=== PATIENT | female | born 1985 | race Caucasian/White ===

== ENCOUNTER 2024-09-13 10:49 | Outpatient (CLI) | payer BC, SELFPAY | END 2024-09-13 10:50 | disposition home or self-care (01) | LOC: NFLDREF 10:50 | PROVIDERS: Visit Provider Advanced Practice Midwife | DX: Z34.92 Encounter for supervision of normal pregnancy, unspecified, second trimester (principal); Z3A.23 23 weeks gestation of pregnancy | CPT/HCPCS: 86140 ==

== ENCOUNTER 2024-10-11 11:09 | Outpatient (CLI) | payer BC, SELFPAY | END 2024-10-11 11:10 | disposition home or self-care (01) | PROVIDERS: Visit Provider Advanced Practice Midwife | DX: Z34.83 Encounter for supervision of other normal pregnancy, third trimester (principal); Z67.11 Type A blood, Rh negative | CPT/HCPCS: 86592; 86850; J2791 ==

== ENCOUNTER 2024-10-18 08:28 | Outpatient (CLI) | payer BC, SELFPAY | END 2024-10-18 08:29 | disposition home or self-care (01) | LOC: NFLDREF 11:12 | PROVIDERS: Visit Provider Advanced Practice Midwife | DX: O99.810 Abnormal glucose complicating pregnancy (principal); Z3A.29 29 weeks gestation of pregnancy | CPT/HCPCS: 82951; 82952 ==

== ENCOUNTER 2024-11-24 13:39 | Outpatient (CLI) | payer BC, SELFPAY | END 2024-11-24 13:40 | disposition home or self-care (01) | LOC: FRMREF 13:40 | PROVIDERS: Visit Provider Midwife | DX: O99.013 Anemia complicating pregnancy, third trimester (principal); N39.0 Urinary tract infection, site not specified; Z3A.34 34 weeks gestation of pregnancy | CPT/HCPCS: 82728; 87086 ==

== ENCOUNTER 2024-12-08 13:59 | Outpatient (CLI) | payer BC, SELFPAY | END 2024-12-08 14:00 | disposition home or self-care (01) | LOC: NFLDREF 12-11 01:52 | PROVIDERS: Visit Provider Advanced Practice Midwife | DX: Z34.83 Encounter for supervision of other normal pregnancy, third trimester (principal) | CPT/HCPCS: 87081; 87653 ==

== ENCOUNTER 2024-12-09 10:17 | Outpatient (RCR) | payer BC, SELFPAY ==
--- NOTE | 2024-12-02 12:46 | URNOTE ---
Per [employer], [employer]([id number]) has been approved 11/26/2024-05/24/2025. Auth #[id number]
[2024-12-09 10:45] VITALS: BP 118/75; PULSE 101; RESP 16; TEMP 36.4; O2SAT 96
[2024-12-09] MEDS: IRON DEXTRAN COMPLEX 25 MG in 0.9 % SODIUM CHLORIDE 100 ml 100 ML 402 MG IVPB (11:06)
[2024-12-09 11:25] VITALS: BP 114/74; PULSE 92; RESP 16; O2SAT 96
[2024-12-09] MEDS: IRON DEXTRAN COMPLEX 975 MG in 0.9 % SODIUM CHLORIDE 250 ml 250 ML 269.5 MG IVPB (12:16)
[2024-12-09 13:23] VITALS: BP 115/74; PULSE 84; RESP 16; O2SAT 98
== END 2025-06-07 23:59 | disposition home or self-care (01) ==
LOC: CCIC 10:17
PROVIDERS: PCP Family Medicine; Visit Provider Clinical Nurse Specialist
DX: O99.013 Anemia complicating pregnancy, third trimester (principal); D50.9 Iron deficiency anemia, unspecified
CPT/HCPCS: 96365; J1750; J7050

== ENCOUNTER 2025-01-07 20:08 | Outpatient (CLI) | payer BC, SELFPAY ==
[2025-01-07 20:21] VITALS: BP 130/85; PULSE 104; RESP 16; TEMP 36.7
--- NOTE | 2025-01-07 21:09 | PC.OBNST ---
NST Note NST Note Start: 01/07/25 20:11 Freq: ONCE Status: Active Protocol: Document 01/07/25 21:08 HECTOR (Rec: 01/07/25 21:09 HECTOR [id number]) NST Note 2 Para (# of births) 1 EDC 01/03/25 Gestational Age In Weeks & Days 40 Weeks & 4 Days High Risk Factors Advanced Maternal Age Patient Presented with Complaint(s) of Decreased movement Reactive Yes RN Zena Rucker RN Date 01/07/25 Reactive Yes BISI Pablo RN Date 01/07/25 OB NST charge Yes Complete NST Note via Write Note Yes The provider's electronic signature indicates the NST is reactive/appropriate for gestational age. *Note to provider: If an addendum is required, open the patient's chart and click on the note under the Nurse/Allied Health tab.
== END 2025-01-07 20:58 | disposition home or self-care (01) ==
LOC: OB OUT 20:08 → OB 20:08
PROVIDERS: PCP Family Medicine; Visit Provider Advanced Practice Midwife
DX: O36.8130 Decreased fetal movements, third trimester, not applicable or unspecified (principal); Z3A.40 40 weeks gestation of pregnancy
CPT/HCPCS: 59025; G0463

== ENCOUNTER 2025-01-10 06:50 | Inpatient (IN) | payer BC, SELFPAY ==
[2025-01-10] VITALS (51 sets, daily range): BP systolic 96–192; BP diastolic 52–103; PULSE 77–172; RESP 16; TEMP 36.5–37.1; O2SAT 96–100; BMI 34.9
[2025-01-10] MEDS: OXYTOCIN 30 unit/500 ML in NS 30 UNIT/500 ML BAG IVPB (08:18)
[2025-01-10] MEDS: LACTATED RINGERS 1000 ML 1,000 ML 125 ML IV ×2 (08:18→19:22)
[2025-01-10 08:27] LABS: Basophils Absolute Auto 0.02 K/uL (0.00-0.30); Basophils Percent Auto 0.2 % (0.0-3.0); Eosinophils Absolute Auto 0.04 K/uL (0.00-0.50); Eosinophils Percent Auto 0.5 % (0.0-7.0); Hematocrit 34.2 % (33.0-51.0); Hemoglobin* 11.5 gm/dL (12.0-16.0); Immature Granulocytes Abs Auto 0.03 K/uL (0.00-0.30); Immature Granulocytes Pct Auto 0.4 %; Lymphocytes Percent Auto 16.1 % (20-44); Mean Corpuscular HGB Conc 34 gm/dL (32-36); Mean Corpuscular Hemoglobin 28 pg (26-34); Mean Corpuscular Volume 82 fL (80-100); Monocytes Percent Auto 7.4 % (0.0-11.0); Neutrophils Percent Auto 75.4 % (42.0-72.0); Platelet Count* 302 K/uL (140-440); RDW Coefficient of Variation % 16.9 % (11.5-15.5); Red Blood Count 4.17 m/uL (4.00-5.20); White Blood Count* 8.28 K/uL (4.50-11.00)
[2025-01-10 08:28] LABS: Slide Review Reflex No
--- NOTE | 2025-01-10 09:14 | W.PM.LDBA ---
Subjective History of Present Illness Narrative: Margaret is a 39 yo at 41 0/7 weeks being admitted to Labor and Delivery for induction of labor for post-dates. She presents this morning feeling some mild contractions that started over night. She denies any leaking of fluid or bleeding. She is a little nervous about pitocin use but is aware of the options. She desires an unmedicated and considering a waterbirth but is open to options if needed. She is supported in labor today by her , Nils. Her full history and physical was dictated by ARGENTINA Hollis on 12/15/2024. Please see this for details. Specific Issues/Plans : Nils, Son: Duke It is a boy! Kristy Brown [facility] at 24 0/7 weeks. H&P completed 12/15/24 by Ruddy ELAINE IOL at 41 weeks on 01/10, consent signed 01/04 #Rh negative, A- Recommend Rhogam at 28 weeks: given 10/11 #AMA Genetic screening: low risk #Anemia 28w:Hgb 10.1, recommended oral iron QOD or MWF, does not have iron 34w:Hgb 10.2, consents to iron infusion. Scheduled for 12/09. Completed. #Anxiety/Depression Taking Duloxetine but is trying to wean off, may switch to Prozac or Zoloft as these worked for her in the past. On sertraline currently 12/15/24. #Elevated CRP with diarrhea, RESOLVED Repeated CRP on transfer, appropriate for #History of recurrent UTI's, not on suppression Keflex works best for her if tx needed COVID: initial series, declined booster today Flu: declined TDAP: 10/25/24 OB Labs (05/24/2024): Blood type: A negative, antibody screen negative. Hgb: 11.2 Platelets: 586 (H) Rubella: Immune Varicella: Immune RPR: non-reactive HBsAg: non-reactive Hep C: negative HIV: negative UC: negative GC/Chlamydia: not collected Pap (unknown): due Genetic screening: QNATAL and AFP low risk IMAGINst trimester: 05/24/2024: 8.0 by LMP, 8.3 by US; ALLAN 01/03/2025 by LMP. FHR 177. Unremarkable exam. Anatomy scan: 08/20/2024: SIUP, EFW 85%ile, unremarkable exam, anterior placenta. OB - Problem Based A/P Additional Plan (1) Post term , 41 weeks: Status: Acute (2) Encounter for induction of labor: Status: Acute (3) AMA (advanced maternal age) multigravida 35+: Status: Acute (4) Anemia during : Status: Acute (5) Obesity (BMI 30-39.9): Status: Acute (6) Anxiety and depression: Status: Acute (7) Rh negative status during : Status: Acute Plan ASSESSMENT:? 39 yo at 41 0/7 weeks gestation? complicated by:? #Rh negative, A- #AMA #Anemia #Anxiety/Depression #Elevated CRP with diarrhea, RESOLVED #History of recurrent UTI's, not on suppression Labor type: Induced, Early labor? Category 1 FHR pattern.?? Labor complicated by: post-dates? GBS negative? ? PLAN:? 1. Routine intrapartum cares as ordered. Discussed induction of labor options including cytotec, cervadil, pitocin, or AROM. I do not believe cytotec is a great option right now as she is ebony every 2-4 minutes and feeling them, although mild. Recommended we consider other options but recommended Pitocin and AROM as our best option at this time. Patient agrees with plan. She does desire to turn off pitocin later if there is an option of doing so. 2. Monitoring per policy, continuous with Pitocin. 3. Planning unmedicated . Desires water . Consent signed. Hep C negative. Candidate for analgesia of choice, if desired.?? 4. Patient encouraged to reposition and ambulate to promote physiologic labor and .? 5. Anticipate ? Delivery/Labor/Induction Plan Plan: induction Induction method: per pitocin protocol OB Result Labs Labs: Lab Assessment Start: 01/10/25 06:59 Freq: ONCE Status: Complete Protocol: PC.OBGBS Activity Type Activity Date Activity User E-sign Co-sign Detail Recorded Client Recorded Date Recorded By Document 01/10/25 07:13 HCR No Response 01/10/25 07:17 HCR 01/10/25 07:13 Lab Assessment GBS Status negative GBS Additional Criteria None No Treatment Needed OK Are Labs Available Yes Maternal Blood Type A Maternal RH Factor Negative Evaluate Maternal Rubella Immune Status Immune Hepatitis B Surface Antigen Negative Maternal HIV Status Negative Maternal Syphillis (RPR) Status Negative Labs Blood Type: A (-) negative OB Exam Physical Exam Vital signs: Temp Pulse Resp BP Pulse Ox 97.7 F 83 16 132/86 98 01/10/25 06:58 01/10/25 08:40 01/10/25 06:58 01/10/25 08:40 01/10/25 06:58 Narrative: Vitals Reviewed Constitutional:? Alert and oriented x3 HEENT:? Normocephalic, atraumatic Neck:? Supple Lungs:? Clear to auscultation bilaterally Heart:? Regular rate and rhythm, no murmur, rub or gallop Abdomen:? Soft, nontender, and gravid. Vertex by Simon's, confirmed with cervical exam. Extremities:? No edema or erythema Cervix: 2.5 cm/50%/-5 station/mid position/soft/vertex NST: 150 bpm/moderate variability/15x15 accelerations/no decelerations/contractions every 2-4 minutes lasting 60-80 seconds, palpate mild Detailed Labor and Delivery Exam Patient Gravid: Yes
[2025-01-10 12:48] LABS: Alanine Aminotransferase* 13 U/L (4-35); Aspartate Amino Transferase* 19 U/L (12-35); Blood Urea Nitrogen* 8 mg/dL (5-24); Creatinine* 0.5 mg/dL (0.5-1.5); Est. Creatinine Clearance* 144.21; Estimated Glomerular Filt Rate 124 ml/min
--- NOTE | 2025-01-10 12:49 | P.OBPN_ITS ---
Subjective Date Seen: 01/10/25 Narrative: Margaret is a 39 yo at 41 0/7 weeks gestation that presented for post-date induction of labor. She is supported by her , Nils. She is coping well at this time. Her IOL was started with IV pitocin with a plan to AROM around lunch time. She reports she is feeling mild cramping/contractions. She desires to not use pitocin if able. She is planning on her database report writer coming in at some point. Objective Exam: Objective: Constitutional: Alert and oriented x3, mild distress, coping well Vital signs stable, see nurse documentation Abdomen: gravid, contractions palpate moderate with contractions and soft between Cervix: 3 cm/60%/-2 station/vertex NST: 120 bpm/moderate variability/15x15 accelerations/no decelerations/contractions every 2 -4 minutes Vital Signs: Last Vital Signs Temp 98.3 F 01/10/25 10:51 Pulse 93 01/10/25 12:28 Resp 16 01/10/25 06:58 BP 123/82 01/10/25 12:28 Pulse Ox 98 01/10/25 06:58 Plan Plan: 39 yo at 41 0/7 weeks gestation? complicated by:? #Rh negative, A- #AMA #Anemia #Anxiety/Depression #Elevated CRP with diarrhea, RESOLVED #History of recurrent UTI's, not on suppression Labor type: Induced, Early labor? Category 1 FHR pattern.?? Labor complicated by: post-dates? GBS negative? ? PLAN:? 1. Routine intrapartum cares as ordered. Plan AROM. We discussed turning off pitocin for 2 hours vs continuing with it. She would prefer to trial it off. We discussed we could restart it at any time if labor does not progress on it's own. She agrees with this plan. 2. Monitoring per policy, continuous with Pitocin. 3. Planning unmedicated . Desires water . Consent signed. Hep C negative. Candidate for analgesia of choice, if desired.?? 4. Patient encouraged to reposition and ambulate to promote physiologic labor and .? 5. RN notified provider of two elevated BP's 4 hours apart, both time recheck was normal. Diastolic for both was just over 90. If she continues to have elevated BP, will diagnose her with GHTN. Will hold off at this time but continue to monitor. Labs are pending. 6. Anticipate ?
[2025-01-10] MEDS: fentaNYL 100 MCG/2 ML inj 25 MCG INTRATHECA (21:30)
--- NOTE | 2025-01-10 21:30 | P.OBPN_ITS ---
Subjective Time Seen by Provider: 21:15 Date Seen: 01/11/25 Narrative: Margaret is a 39 yo at 41 0/7 weeks gestation that presented for post-term IOL. Her induction was started with IV pitocin, then AROM. Pitocin was turned off after AROM for 4 hours but restarted when contractions were not becoming more regular. She only then had a max of 3 mu of pitocin. Labor was assumed to begin at 1814 when her contractions were regular and she was regularly breathing through contractions. She coped well and had her , Nils, and Sidewalk Repairer, Ashely, to defensive line coach her through labor. At 1999, she entered the tub. She intermittently was pushing involuntarily with urge. After approximately 50 minutes of involuntarily pushing, it was recommended she have a cervical exam. She at this time was also requesting an epidural. She was escorted from the tub and SVE was 8.5/90/0 station. Anesthesia was notified of patient request. Objective Exam: Objective: Constitutional: Alert and oriented x3, severe distress, coping well Vital signs stable, see nurse documentation Abdomen: gravid, contractions palpate strong with contractions and soft between Cervix: 8.5 cm/90%/0 station/vertex/anterior cervix NST: 125 bpm/moderate variability/15x15 accelerations/no decelerations/contractions every 1-3 minutes lasting 60-80 seconds Vital Signs: Last Vital Signs Temp 98 F 01/10/25 19:30 Pulse 123 H 01/11/25 00:56 Resp 16 01/10/25 19:30 BP 114/77 01/11/25 00:56 Pulse Ox 99 01/10/25 23:55 Assessment Amniotic Membrane Status: AROM Plan Plan: 39 yo at 41 0/7 weeks gestation? complicated by:? #Rh negative, A- #AMA #Anemia #Anxiety/Depression #Elevated CRP with diarrhea, RESOLVED #History of recurrent UTI's, not on suppression Labor type: Induced, Early labor? Category 1 FHR pattern.?? Labor complicated by: post-dates; urge to push with cervix present GBS negative? ? PLAN:? 1. Routine intrapartum cares as ordered. Continue with IV pitocin. 2. Monitoring per policy, continuous with Pitocin. 3. Candidate for analgesia of choice, if desired.?Patient sitting for ITN, will recheck?SVE when patient more comfortable. 4. Patient encouraged to reposition and ambulate to promote physiologic labor and .? 5. Patient meets criteria for GHTN based on elevated BP, continuing to be borderline . P/c ratio was not collected. Labs WNL. 6. Anticipate ?
[2025-01-10] MEDS: PHENYLEPHRINE 100 MCG/ML SYRINGE IVP ×2 (21:34→21:44)
--- NOTE | 2025-01-10 21:38 | P.ANBPRC_ITS ---
[facility] Medical History Elevated C-reactive protein (CRP) ?R79.82 - Elevated C-reactive protein (CRP) (ICD-10) Migraines ?G43.909 - Migraine, unspecified, not intractable, without status migrainosus (ICD-10) Anemia during ?O99.019 - Anemia complicating , unspecified trimester (ICD-10) Recurrent urinary tract infection ?N39.0 - Urinary tract infection, site not specified (ICD-10) Obesity (BMI 30-39.9) ?E66.9 - Obesity, unspecified (ICD-10) Anxiety and depression ?F41.9 - Anxiety disorder, unspecified (ICD-10) ?F32.A - Depression, unspecified (ICD-10) Diarrhea ?R19.7 - Diarrhea, unspecified (ICD-10) Surgical History H/O wrist surgery ?Z98.890 - Other specified postprocedural states (ICD-10) History of nasal septoplasty ?Z98.890 - Other specified postprocedural states (ICD-10) Family History (Updated 12/15/24 @ 13:33 by Sheyla Florez CNM) Grandfather High blood pressure Diabetes Maternal Grandfather Cancer Father Testicular cancer Social History Narrative: SOCIAL Education: Bachelors degree 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 [employer] Lives with: Duke [employer] (son) Pets: 2 dogs, 1 cat Abuse: Denies past/present Special Diet: Denies Ok with a blood transfusion: yes Culture or anabaptism beliefs: denies RISK FACTORS Exercise Times/wk: Not routinely Depression/Anxiety: Yes, Anxiety with some depression Seat Belt Use: Routinely Smoking: Denies presentStopped in 2021 Alcohol/day: Denies while ; Rare prior (socially) Caffeine: 1 pop per day maybe Drug Use: Denies past/present MRSA: Denies What is your current living situation?: I presently have a place to live Problems where you live: no known problems In the past 12 months, utilities in danger of being shut off: no In past 12 months, lack of transportation kept you from medical appts, meetings, work, or getting things needed for daily living: no How hard is it for you to pay for the very basics like food, housing, medical care, and heating: not very hard In the past 12 mos, have been you worried that your food would run out before you had money to buy more?: never true In the past 12 mos, the food you bought just didn't last and you didn't have money to buy more?: never true Smoking Status: Never smoker How often does anyone, including family, friends and others, physically hurt you : never How often does anyone, including family, friends and others, insult or talk down to you: never How often does anyone, including family, friends and others, threaten you with harm: never How often does anyone, including family, friends and others, scream or curse at you: never Meds Home Medications and Allergies Home Medications ?Medication ?Instructions ?Recorded ?Confirmed ?Type vit 168-iron 27 mg-folic 1 cap PO DAILY 09/13/24 01/10/25 History acid 800 mcg-omega3 235 mg capsule (One-A-Day -1) sertraline 50 mg tablet 50 mg PO QDAY 10/11/24 01/10/25 History omeprazole magnesium 20 mg 20 mg PO QDAY 10/25/24 01/10/25 History tablet,delayed release (Prilosec OTC) Allergies Allergy/AdvReac Type Severity Reaction Status Date / Time nitrofurantoin (From Allergy Mild Hives Verified 01/10/25 07:01 Macrobid) sulfamethoxazole (From Allergy Mild Hives Verified 01/10/25 07:01 Bactrim) trimethoprim (From Bactrim) Allergy Mild Hives Verified 01/10/25 07:01 Results Labs Labs: Laboratory Results - last 24 hr 01/10/25 08:15 WBC 8.28 RBC 4.17 Hgb 11.5 L Hct 34.2 MCV 82 MCH 28 MCHC 34 RDW Coeff of Qamar 16.9 H Plt Count 302 Neut % (Auto) 75.4 H Lymph % (Auto) 16.1 L Assumption % (Auto) 7.4 Eos % (Auto) 0.5 Baso % (Auto) 0.2 Neut # (Auto) 6.20 Lymph # (Auto) 1.30 Assumption # (Auto) 0.60 Eos # (Auto) 0.04 Baso # (Auto) 0.02 Abs Immat Gran (auto) 0.03 Imm/Tot Granulo (auto) 0.4 BUN 8 Creatinine 0.5 Estimated Creat Clear 144.21 Estimated GFR 124 AST 19 ALT 13 Blood Type A Negative Antibody Screen NEGATIVE Vital Signs Vital Signs: Last Vital Signs Temp 98 F 01/10/25 19:30 Pulse 129 H 01/10/25 21:37 Resp 16 01/10/25 19:30 BP 104/52 L 01/10/25 21:37 Pulse Ox 100 01/10/25 21:38 Weight: 98.248 kg Height: 167.64 cm Anesthesia Procedures Intrathecal Patient Location: OB Start Time: 09:20 Stop Time: 09:40 Start Date: 01/10/25 Stop Date: 01/10/25 Reason for Block: primary anesthetic Patient Position: sitting Performed By: Froy Soto Preanesthetic Checklist: IV checked, risks and benefits discussed and anesthesia consent Prep: patient draped Approach: midline Vertebral Space: lumbar (1-5) Needle Type: Sprotte Injection Technique: single-shot Needle gauge: 24 Needle Length (cm): 10 cm Events: cerebrospinal fluid
[2025-01-10] MEDS: ePHEDrine sulfate 5 MG/ML inj 10 MG IVP (21:39)
[2025-01-10] MEDS: ONDANSETRON 2 MG/ML inj 4 MG IV (21:44)
[2025-01-10] MEDS: LACTATED RINGERS 1000 ML 1,000 ML 1125 ML IV (21:54)
[2025-01-11] VITALS (17 sets, daily range): BP systolic 110–140; BP diastolic 63–88; PULSE 86–171; RESP 12–16; TEMP 36.6–37; O2SAT 96–98
[2025-01-11] MEDS: OXYTOCIN 30 unit/500 ML in NS 30 UNIT/500 ML BAG 300 UNIT IVPB (00:16)
[2025-01-11] MEDS: LIDOCAINE 1 % PF 30 ML INJECTION (00:30)
--- NOTE | 2025-01-11 01:21 | W.PM.OBVAGDE ---
OB Procedure Vag Delivery Mother Details Mother Details: The patient is a 39 year-old, 2, now Para 2, admitted on 01/10/25 at 41.0 weeks gestation. : 2 Para: 2 Weeks Gestation: 41.1 Admission Date: 01/10/25 Additional Details Amniotic Membrane Status: AROM Amniotic Membrane Rupture Date: 01/10/25 Amniotic Membrane Rupture Time: 12:00 Amniotic Membrane Fluid Description: Clear Analgesia/Anesthesia Type: Intrathecal Waterbirth: No Pitcoin: Yes Intrapartal Events: Labor Induction Labor Onset: 18:15 Complete: 22:03 Pushin:03 Heart: heart tones during second stage were category II with variable and late decelerations intermittently. Baseline returned normal between contractions with moderate variability and accelerations present throughout. Delivery Details Delivery Date: 01/11/25 Delivery Time: 00:15 Route of delivery: Infant Gender: Male Infant Viability: Alive; Heart Rate Present Position at Delivery: OA Delivery Details: Patient was admitted for induction of labor for post dates. She progressed normally with Pitocin and AROM. Pitocin was turned off post-ITN and remained off until delivery. AROM at 1200 for clear fluid. Patient entered the tub at 2000 and began involuntarily pushing at peak. After 50 minutes of minimal change, she requested and epidural and was recommended SVE. She received an ITN at 2115 and was recheck with anterior lip that was reduced with pushing. Patient was complete at 2203 and pushing at 2203. The lip was intermittently palpated during pushing but fetus was suspected OP. She pushed well with guidance and position changes. of a viable male at 0015 in semi-reclined position on the bed. Vertex delivered OA. Nuchal cord x1, reduced at perineum. No shoulder. Body delivered easily and without incident. Infant passed to mothers abdomen with a vigorous cry. Cord was clamped and cut at > 5 minutes. APGARS were 6 at one minute and 8 at five minutes respectively. Mouth was bulb suctioned. Intact placenta with a 3 vessel cord delivered spontaneously at 0025. Fundus firm. 1st degree perineal, skin extending to rectal mucosa, identified and repaired in typical fashion. QBL 350 cc. Mother and baby stable; mother plans to breastfeed. weight pending. 1 Minute Interval Total Score: 6 5 Minute Interval Total Score: 8 Additional Details Shoulder Dystocia: No Placenta Delivery Time: 00:15 Placental Delivery Description: Spontaneous Delivery repair: Vicryl Procedure Done: Global Blood Loss: 350 Laceration: Perineal - 1st Degree Blood Loss Measurement Type: QBL Bakri Used: No Sponge/Need Count Correct: Yes Cord Vessel Description: 3 Vessels, Nuchal Cord, Loose and Reduced Event Summary Status: Mother and infant were stable after delivery. Disposition: floor
[2025-01-11] MEDS: IBUPROFEN 600 MG TABLET PO ×4 (02:14→20:57)
[2025-01-11] MEDS: ACETAMINOPHEN 500 MG TABLET 1000 MG PO ×3 (03:47→17:51)
[2025-01-11 07:38] LABS: Hemoglobin* 10.1 gm/dL (12.0-16.0)
[2025-01-11] MEDS: DOCUSATE SODIUM 100 MG CAPSULE PO (08:29)
--- NOTE | 2025-01-11 12:17 | PM.ANPOST ---
Post Anesthesia Note Post Anesthesia Note Patient seen: Inpatient Respiratory Status: adequate Cardiovascular Status: adequate Mental Status: baseline Pain: adequate Temp: baseline Anesthetic awareness: N/A Complications: none Follow care: none
[2025-01-12 02:03] VITALS: BP 123/77; PULSE 87; RESP 16; TEMP 36.6
--- NOTE | 2025-01-12 07:45 | PM.OBDSVD1 ---
DS: Providers Provider Date Seen: 01/12/25 Date of admission: 01/10/25 06:50 Primary care physician: Sania Blum DO Admitting Clinician: Phuong Perez CNM Attending Physician on discharge: Glenn Cummings CNM Date of Discharge: 01/12/25 DS: Diagnosis Discharge Diagnosis (1) care and examination of lactating mother: Status: Acute (2) NVD (normal vaginal delivery): Status: Acute (3) Gestational hypertension: Status: Acute (4) Rh negative status during : Status: Acute Exam Narrative: Exam Narrative: VSS, afebrile GENERAL APPEARANCE: ?normal affect, alert, no distress MOOD: ?appropriate HEENT: normocephalic, neck supple, full ROM CHEST: ?Symmetrical chest wall movement. ?Normal respiratory effort. ?Clear to auscultation HEART: ?regular rate and rhythm ABDOMEN: ?soft, non-tender. Uterine fundus is firm, 1 above Umbilicus, pt reports she needs to get up and void, Midline and is appropriate for the stage of recovery. ?Bowel sounds present. PERINEUM: ?mild edema of the perineum, there is a 1st degree laceration that is healing well. EXTREMITIES: ?normal and no edema Const: Vital Signs, click to edit/add: Vital Signs - 24 hr 01/11/25 08:20 01/11/25 11:48 01/11/25 16:25 Temperature 97.8 F 98.6 F 98.1 F Pulse Rate [Pulse Oximeter] 91 97 90 Respiratory Rate 16 16 16 Blood Pressure [Ri ght Arm] 116/76 118/75 111/67 Pulse Oximetry 98 97 96 Oxygen Delivery Me thod Room Air Room Air Room Air 01/11/25 20:45 01/12/25 02:03 Temperature 97.8 F 97.8 F Pulse Rate [Pulse Oximeter] 97 87 Respiratory Rate 16 16 Blood Pressure [Ri ght Arm] 110/68 123/77 Pulse Oximetry 97 Oxygen Delivery Me thod Room Air Documenting provider has reviewed patient's vital signs: yes OB - DS: Summary Hospital Course Hospital Course: Margaret is a 39 y.o. who was admitted to L & D for postdates induction. ?She had an uncomplicated NVD.?The patient feels well. ?The pain is well controlled with current medications. ?She has no new complaints. ?She is breast feeding and reports things are going well.? the patient has done well.? Vitals have been stable.? She has remained afebrile.? Has a good appetite, is tolerating a general diet. ?She is voiding without difficulty.? She is passing gas and has not had a bowel movement.? She is ambulating and denies any dizziness.? Has Small amount of rubra lochia. ?She is undecided on her plan for prevention. Peripartum Data delivery method: Vaginal Laceration description: Perineal - 1st Degree complications: none Infant Gender: Male Discharge Plan: Home Status at Discharge Functional status at discharge: independent ambulation Overall status at discharge: patient is progressing back to baseline Time Spent with Patient Time attestation: Total time spent providing and/or coordinating discharge services: Time spent: Less than 30 minutes Discharge Plan Discharge Disposition: Home, Self-Care Date of Admission: 01/10/25 06:50 Attending Provider on Discharge: Glenn Cummings Primary Care Provider: Sania Blum Condition: Stable Anticipated Discharge Date/Time: 01/12/25 12:00 Discharge Medications: New acetaminophen 500 mg Tablet 1,000 mg PO Q6H PRNQty: 0 0RF docusate sodium 100 mg Capsule 100 mg PO DAILY Qty: 90 0RF ibuprofen 600 mg Tablet 600 mg PO Q6H PRNQty: 60 0RF Continued One-A-Day -1 27 mg iron- 800 mcg-235 mg capsule 1 cap PO DAILY sertraline 50 mg tablet 50 mg PO QDAY omeprazole magnesium [Prilosec OTC] 20 mg tablet,delayed release (DR/EC) 20 mg PO QDAY Discharge Orders: Discharge Order (Routine); Ordered 01/12/25 Ordered By: Glenn Cummings Patient Education: OB Over the Counter Medication Information, OB Vaginal/Breast Feeding Additional Instructions: Discharge instructions were reviewed with the patient including signs and symptoms of infection and home going medications Nothing vaginally for 6 weeks: no tampons or intercourse Off Work or School for 6 weeks [facility] for a BP check?01/14/25 Call with BP greater than or equal to 150/100 2-week visit: discuss feeding concerns, review control options and screen for anxiety/depression. 6-week visit for an annual exam. consultation services are available to all mothers and babies for the first year after delivery.? To make an appointment, please call [phone]. Activity Level: Activity as Tolerated Discharge Diet: Regular Follow Up Appointments: [facility] [Provider Group] Forms: [employer] Info Instructions
[2025-01-12 08:41] VITALS: BP 118/76; PULSE 92; RESP 16; TEMP 36.4; O2SAT 97
[2025-01-12] MEDS: DOCUSATE SODIUM 100 MG CAPSULE PO (08:56)
[2025-01-12] MEDS: IBUPROFEN 600 MG TABLET PO (08:56)
[2025-01-12 12:58] VITALS: BP 123/80; PULSE 90; RESP 16; TEMP 36.6; O2SAT 96
== END 2025-01-12 14:50 | disposition home or self-care (01) | DRG 560 ==
PROVIDERS: Advanced Practice Midwife; Admitting Provider Advanced Practice Midwife; PCP Family Medicine; Visit Provider Advanced Practice Midwife
DX: O48.0 Post-term pregnancy (principal); O13.4 Gestational [pregnancy-induced] hypertension without significant proteinuria, complicating childbirth; O70.0 First degree perineal laceration during delivery; O26.893 Other specified pregnancy related conditions, third trimester; Z67.11 Type A blood, Rh negative; O99.344 Other mental disorders complicating childbirth; F41.9 Anxiety disorder, unspecified; F32.A Depression, unspecified; O99.02 Anemia complicating childbirth; D64.9 Anemia, unspecified; O99.214 Obesity complicating childbirth; E66.9 Obesity, unspecified; Z87.440 Personal history of urinary (tract) infections; Z37.0 Single live birth; Z3A.41 41 weeks gestation of pregnancy
CPT/HCPCS: 01967; 36415; 82565; 84450; 84460; 84520; 85018; 85025; 85027; 85461; 86592; 86850; 86900; 86901; A9270; J2003; J2405; J2791; J3010; J7120

== ENCOUNTER 2025-01-18 01:35 | Emergency (ER) | payer BC, SELFPAY ==
--- OUTSIDE RECORDS SUMMARY | 2025-01-18 01:37 | XMS_ITS | Clinical Summary ---
Author Organization [employer] Address [address] [place] [id number] Care Team Providers Care Beater Boss Name Role Phone [facility] Primary Care Provider Unavailabl e Allergies Active Allergy Reactions Criticality Noted Date Comments Nitrofurantoin Monohyd/M-Cryst Hives Medium 06/18 Sulfamethoxazole-Trimethoprim Hives Medium 2018 Medications ALPRAZolam (XANAX) 0.25 mg tabletIndication s:NICKO (generalized anxiety disorder),Panic attack Take 1 Tablet (0.25 mg) by mouth 3 times daily. 10 Tablet 1 Active DULoxetine (CYMBALTA) 20 mg Delayed-release capsuleIndicatio ns:NICKO (generalized anxiety disorder) Take 1 Capsule (20 mg) by mouth once daily. 4 Active metoclopramide HCl (REGLAN) 10 mg tablet TAKE 1 TABLET BY MOUTH EVERY 8 HOURS NEEDED FOR NAUSEA OR HEADACHE 4 Active vit/iron fum/folic ac ( 1 + 1 ORAL) Active Lactobacillus acidophilus (PROBIOTIC ACIDOPHILUS ORAL) once daily. Active famotidine (PEPCID) 20 mg tabletIndication s:Nausea Take 1 Tablet (20 mg) by mouth two times daily. 180 Tablet 4 Active Active Problems Problem Noted Date Diagnosed Date NICKO (generalized anxiety disorder) 08/23/2024 PVC (premature ventricular contraction) 12/17/19 24 Complicated migraine 12/28/2019 Estimated Date of Delivery Comme nts Yes 01/03/2025 Encounters Date Type Department Care Team Description 01/11/2025 Orders Only [facility] Scanner 1 scan: (1-Ord) [place], [place] PROCEDURE VAG DELIVERY, 01/11/2025 from Last 3 Months Immunizations Immunization Administration Dates Next Due COVID-19 vaccine ([employer] 30mcg/0.3mL) PF, MDV 02/19/2021,01/29/2021 DT (Age < 7 years) 02/05/1988 DTP 06/10/1988,04/09/1988 Influenza, IIV4 08/13/2021,08/16/2020,08/16/2019 Influenza, IIV4 (=>6mos) MDV 08/21/2018 Oral Polio Vaccine 04/09/1988,02/05/1988 Tdap 07/11/2017,06/08/2016 Family History Medical History Relation Name Comments Testicular cancer Father Leukemia Maternal Grandfather Coronary artery disease Paternal Grandfather 60s Relation Name Status Comments Brother 1 Alive Brother 2 Alive Father Alive Half-Brother Alive Maternal Grandfather Mother Alive Paternal Grandfather Social History Tobacco Use Types Packs/Day Years Used Date Smoking Tobacco: Former Cigarettes Smokeless Tobacco: Never Tobacco Cessation:Counseling Given: Not Answered Alcohol Use Standard Drinks/Week Comments Not Currently 0 (1 standard drink = 0.6 oz pur e alcohol) 1 PHQ-2 Answer Date Recorded PHQ-2 TOTAL SCORE 0 12/05/2023 Social Connections Answer Date Recorded Do you often feel lonely or isolated from those around you? 0 08/23/2024 Financial Resource Strain Answer Date R ecorded Difficulty of Paying Living Expenses 3 08/23/2024 Difficulty of Paying Living Expenses Not on file 08/23/2024 Food Insecurity Answer Date Recorded Do you worry your food will run out before you are able to buy more? 1 08/23/2024 Transportation Needs Answer Date Record ed Does lack of transportation keep you from medica l appointments? 1 08/23/2024 Does lack of transportation keep you from work, meetings or getting things that you need? 1 08/23/2024 Housing Stability Answer Date Recorded What is your housing situation today? 1 08/23/2024 Utilities Answer Date Recorded Do you have trouble paying f or utilities (for example, heat, electricity, water, phone)? 1 08/23/2024 Estimated Date of Delivery Comme nts Yes 01/03/2025 Sex and Gender Information Value Date Recorded Sex Assigned at Not on file Legal Sex Female 1:56 PM CDT Gender Identity Not on file Sexual Orientation Not on file Obstetrics History Para Term AB IAB SAB Ectopic Multiple Livin g Live Births 1 Date Outcome GA Total Labor Labor/2nd/3rd Weight Sex Type Anes PTL Shea A1 A5 Name Clin Current Last Filed Vital Signs Vital Sign Reading Time Taken Comments Blood Pressure 114/72 09/06/2024 2:23 PM PROCUREMENT INTERN Pulse 90 09/06/2024 2:23 PM PROCUREMENT INTERN Temperature 36.5 C (97.7 F) 03/21/2024 1:05 PM CDT Respiratory Rate 14 03/21/2024 1:05 PM CDT Oxygen Saturation 98% 03/21/2024 1:05 PM CDT Inhaled Oxygen Concentration - - Weight 91.2 kg (201 lb) 09/06/2024 2:23 PM PROCUREMENT INTERN Height 168.9 cm (5' 6.5) 09/06/2024 2:23 PM PROCUREMENT INTERN Body Mass Index 31.96 09/06/2024 2:23 PM PROCUREMENT INTERN Plan of Treatment Health Maintenance Due Date Last Done Comments HIV for age 15-65 2002 Hepatitis C screening for ag e 18-79 2005 Pneumococcal series for age 6-49 (1 of 2 - PCV) 2006 COVID-19 vaccine series ( - season) 2024 02/19/2021, 01/29/2021 Influenza Vaccine (#1) 2024 , 08/16/2020, 08/16/2019, Additional history exists Pap test for age 21-65 07/13/2024 [facility] Depression screening for age 12+ 12/09/2024 12/09/2023, 12/05/2023, 11/19/2021, Additional history exists BMI (ht and wt on same day) for age 18+ 09/06/2025 09/06/2024, 08/23/2024, 12/05/2023, Additional history exists Tetanus booster 07/11/2027 07/11/2017, 06/08/2016 Tdap Completed 07/11/2017, 06/08/2016 RSV vaccine for adults or (No Doses Required) Completed Procedures Procedure Name Priority Date/Time Associated Diagnosis Comments SCAN-OPERATIVE/PROC EDURE REPORT 01/11/2025 12:00 AM CDT from Last 3 Months Results * SCAN-OPERATIVE/PROCEDURE REPORT (01/11/2025 12:00 AM CDT) us Scanner OTHER Final Result from Last 3 Months Insurance BLUE CROSS OF NON-UT-ITS Care Teams Beater Boss Relationship Specialty Start Date End Date [facility] PCP - General 02/12/23
--- OUTSIDE RECORDS SUMMARY | 2025-01-18 01:38 | XMS_ITS | Clinical Summary ---
Author Organization [facility] Address [address] [place] [address] Care Team Providers Care Marine Equipment Research Engineer Name Role Phone Meera Avery MD Unavailable Kiya Villar PA-C Unavailable [phone] Kiya Villar PA-C Unavailable [phone] Sania Blum DO Primary Care Provider [phone] Allergies Active Allergy Reactions Criticality Noted Date Comments Sulfamethoxazole-Trimethoprim Rash Low 2015 Nitrofurantoin Hives 06/08/2016 Medications ALPRAZolam (XANAX PO) Take 0.25 mg by mouth 2 times daily as needed for anxiety Active RaNITidine HCl (ZANTAC PO) Active Acetaminophen (TYLENOL PO) Take 1,000 mg by mouth Active Vit-Fe Fumarate-FA ( MULTIVITAMIN PLUS IRON) 27-0.8 MG TABS per tablet Take 1 tablet by mouth daily Active DULoxetine (CYMBALTA) 20 MG capsule Take 20 mg by mouth daily 3 Active Active Problems Problem Noted Date Diagnosed Date Second degree perineal laceration 09/20/2017 Lactating mother 09/20/2017 (normal spontaneous vaginal delivery) 09/18 Indication for care in labor or delivery 017 Estimated Date of Delivery Comme nts Yes 01/03/2025 Immunizations Name Administration Dates Next Due TDAP Vaccine (Adacel) 06/08/2016 Social History Tobacco Use Types Packs/Day Years Used Date Smoking Tobacco: Never Smokeless Tobacco: Never Tobacco Cessation:Counseling Given: Not Answered Alcohol Use Standard Drinks/Week Comments No 0 (1 standard drink = 0.6 oz pur e alcohol) PHQ-2 Answer Date Recorded PHQ-2 Score 0 08/29/2023 Adolescent Education Answer Date Record ed Getting School Help Needed Not on file 07/18 Estimated Date of Delivery Comme nts Yes 01/03/2025 Sex and Gender Information Value Date Recorded Sex Assigned at Not on file Legal Sex Female 2:25 PM CDT Gender Identity Not on file Sexual Orientation Not on file Last Filed Vital Signs Vital Sign Reading Time Taken Comments Blood Pressure 110/69 05/21/2024 9:28 PM CDT Pulse 85 05/21/2024 9:27 PM CDT Temperature 36.8 C (98.3 F) 05/21/2024 6:13 PM CDT Respiratory Rate 16 05/21/2024 9:27 PM CDT Oxygen Saturation 97% 05/21/2024 9:27 PM CDT Inhaled Oxygen Concentration - - Weight 90.1 kg (198 lb 10.2 oz) 05/21/2024 6:13 PM CDT Height 167.6 cm (5' 6) 05/21/2024 6:13 PM CDT Body Mass Index 32.06 05/21/2024 6:13 PM CDT Plan of Treatment Health Maintenance Due Date Last Done Comments ADVANCE CARE PLANNING 1987 ANNUAL REVIEW OF HM ORDERS 1987 YEARLY PREVENTIVE VISIT 1990 HEPATITIS C SCREENING 2005 HEPATITIS B IMMUNIZATION (1 of 3 - 19+ 3-dose series) 2006 PAP 2008 COVID-19 Vaccine ( season) 2024 02/19/2021, 01/29/2021 INFLUENZA VACCINE (#1) 2024 , 08/16/2020, 08/16/2019, Additional history exists TDAP () IMMUNIZATION 10/04/2024 PHQ-2 (once per calendar year) 2024 08/29/2023 DIABETES SCREENING 05/21/2027 05/21/2024, 09/06/2023 DTAP/TDAP/TD IMMUNIZATION (5 - Td or Tdap) 07/11/2027 07/11/2017, 06/08/2016, 06/10/1988, Additional history exists ZOSTER IMMUNIZATION (1 of 2) 2037 HIV SCREENING Completed 02/01/2017 HPV IMMUNIZATION Aged Out No longer e ligible based on patient's age to complete this topic MENINGITIS IMMUNIZATION Aged Out No l onger eligible based on patient's age to complete this topic Pneumococcal Vaccine: Pediatrics (0 to 5 Years) and At-Risk Patients (6 to 49 Years) Aged Out No longer eligible based on patient's age to complete this topic RSV VACCINE (No Doses Required) Completed Procedures Procedure Name Priority Date/Time Associated Diagnosis Comments BASIC METABOLIC PANEL STAT 05/21/2024 7:19 PM CDT HIV ANTIGEN ANTIBODY COMBO Routine 02/01/2017 from Last 3 Months or Most Recently Relevant to Health Maintenance Results * (ABNORMAL) Basic metabolic panel (BMP) (05/21/2024 7:19 PM CDT) Sodium 132(L) 135 - 145 mmol/L 05/21/2024 7:57 PM CDT [facility] Potassium 4.4 3.4 - 5.3 mmol/L 05/21/2024 7:57 PM CDT [facility] Chloride 99 98 - 107 mmol/L 05/21/2024 7:57 PM CDT [facility] Carbon Dioxide (CO2) 18(L) 22 - 29 mmol/L 05/21/2024 7:57 PM CDT [facility] Anion Gap 15 7 - 15 mmol/L 05/21/2024 7:57 PM CDT [facility] Urea Nitrogen 6.6 6.0 - 20.0 mg/dL 05/21/2024 7:57 PM CDT [facility] Creatinine 0.51 0.51 - 0.95 mg/dL 05/21/2024 7:57 PM CDT [facility] GFR Estimate >90 >60 mL/min/1.7 3m2 05/21/2024 7:57 PM CDT [facility] Comment:eGFR calculated usin 2020 CKD-EPI equation. Calcium 9.9 8.8 - 10.4 mg/dL 05/21/2024 7:57 PM CDT [facility] Comment:Reference intervals for this test were updated on 05/11/2024 to reflect our healthy population more accurately. There may be differences in the flagging of prior results with similar values performed with this method. Those prior results can be interpreted in the context of the updated reference intervals. Glucose 93 70 - 99 mg/dL 05/21/2024 7:57 PM CDT [facility] Blood BLOOD SPECIMEN / Unknown Venipuncture / Unknown 05/21/2024 7:19 PM CDT 05/21/2024 7:24 PM CDT us Kanchan Wilkinson MD LAB - BLOOD ORDERABLES Final Result LABORATORY [facility] [address] Lab (1st floor, no room number) [place] [address] * HIV Antigen Antibody Combo (02/01/2017) Pathologist [facility] HIV Antigen Antibody Combo Negative Blood specimen (specimen) us Patient Reported LAB - BLOOD ORDERABLES Final Re sult from Last 3 Months or Most Recently Relevant to Health Maintenance Insurance BC [facility] OF [facility] BCBS OUT OF STATE Care Teams Marine Equipment Research Engineer Relationship Specialty [place] [id number] [address] [place], [place] [id number] PCP - General Family Medicine 05/21/24 [place] [address] [place] [place], [place] [id number] Physician receiving inspector 08/20/23 Kiya Villar PA-C [phone] [place] [id number] Physician Short Filler Bunch Machine Operator Urology 08/20/23 Kiya Villar PA-C [phone] [place] [id number] Assigned OBGYN Provider 09/06/23
--- OUTSIDE RECORDS SUMMARY | 2025-01-18 01:38 | XMS_ITS | Data Portability ---
Author Organization [facility], [id number] Address [address] [facility] [place] [place] [address] Assessment No assessment recorded. Plan of Treatment Reminders Order Date Submit Date Provider Last Modified By Organization Details Last Modified Time Details Appointments None recorded. Lab bacterial vaginosis + vaginitis panel, vaginal 2019 020 [place] [id number] en Dawn, [address] [place] [address], [address], [place], [address], 0 17:41:11 thyroid cascade, serum 2019 020 [facility] Lab, [address] [place], [address], 0 01:47:31 CMP, serum or plasma 2019 020 [facility] - Lab, [address] [place], [address], 0 01:44:40 CBC 2019 020 [facility], [address] [place], [address], 0 21:56:09 unlisted lab - iron status (includes iron, transferrin and ferritin) 2019 020 [facility], [address] [place], [address], 0 01:44:41 Referral None recorded. Procedures None recorded. Surgeries None recorded. Imaging US, pelvis 2019 020 [email or web address] [id number] en Dawn, [address] [place] [address], [address], [place], [address], 0 14:37:25 US, 3D rendering 2019 020 [email or web address] [id number] en Dawn, [address] [facility], [address], [place], [address], 0 12:41:32 Medication Orders None recorded. Patient TargetsNo targets recorded. Patient Instructions Encounter Date Encounter Id Patient Instructions Last Modified By Organization Details Last Modified Time 06/15/2020 [id number] return to clinic for pelvic u/s to confirm IUD placement [email or web address] Not available 06/15/2020 15:57:53 06/20/2020 [id number] IUD removed without difficulty. Will schedule for replacement with her next period [email or web address] Not available 06/20/2020 12:46:28 Reason for Referral None Reported. Results Created Date Observation Date Name Description Value Unit Range Abnormal Flag Note LastModifiedBy Organization Detail LastModifiedTime 06/15/20 20 06/15/2020 CBC WBC 8.5 K/uL 4.3-10 .8 Not Available [facility] [address] [place], [address], 06/15/2020 21:56:09 06/15/20 20 06/15/2020 CBC RBC 4.15 M/uL 4.20-5 .40 low Not Available [facility] [address] [place], [address], 06/15/2020 21:56:09 06/15/20 20 06/15/2020 CBC hemoglobin 11.7 gm/dL 12.0-1 6.0 low Not Available [facility] [address] [place], [address], 06/15/2020 21:56:09 06/15/20 20 06/15/2020 CBC hematocrit 36.3 % 36.0-4 8.0 Not Available [facility] [address] [place], [address], 06/15/2020 21:56:09 06/15/20 20 06/15/2020 CBC MCV 88 fL 80-100 Not Available [facility] [address] [place], [address], 06/15/2020 21:56:09 06/15/2006/15/2020 CBC MCH 28 pg 27-33 Not Available [facility] [address] [place], [address], 06/15/2020 21:56:09 06/15/20 20 06/15/2020 CBC MCHC 32 gm/dL 33-36 low Not Available [facility] [address] [place], [address], 06/15/2020 21:56:09 06/15/20 20 06/15/2020 CBC RDW 12.6 % 11.5-1 4.5 Not Available [facility] [address] [place], [address], 06/15/2020 21:56:09 06/15/20 20 06/15/2020 CBC platelet count 493 K/uL 150-40 0 high Not Available [facility] [address] [place], [address], 06/15/2020 21:56:09 06/15/20 20 06/15/2020 CBC MPV 9.9 6.5-12 Not Available [facility] [address] [place], [address], 06/15/2020 21:56:09 06/15/20 20 06/15/2020 CMP, serum or plasm a sodium 137 mmol/ L 136-14 5 Not Available [facility] [address] [place], [address], 06/16/2020 01:44:40 06/15/20 20 06/15/2020 CMP, serum or plasm a potassium 4.1 mmol/ L 3.5-5. 1 Not Available [facility] [place], [address], 06/16/2020 01:44:40 06/15/20 20 06/15/2020 CMP, serum or plasm a chloride 103 mmol/ L 98-112 Not Available [facility] [place], [address], 06/16/2020 01:44:40 06/15/20 20 06/15/2020 CMP, serum or plasm a carbon dioxide 28 mmol/ L 21-32 Not Available [facility] [place], [address], 06/16/2020 01:44:40 06/15/20 20 06/15/2020 CMP, serum or plasm a BUN (urea nitro) 16 mg/dL 7-24 Not Available [facility] [address] [place], [address], 06/16/2020 01:44:40 06/15/2006/15/2020 CMP, serum or plasm a creatinine 0.84 mg/dL 0.55-1 .02 Not Available [facility] [address] [place], [address], 06/16/2020 01:44:40 06/15/20 20 06/15/2020 CMP, serum or plasm a est GFR (CKD-epi) >60 mL/mi n >60 Not Available [facility] [place] [place], [address], 06/16/2020 01:44:40 06/15/20 20 06/15/2020 CMP, serum or plasm a est GFR if AM >60 mL/mi n >60 Not Available [facility] [address] [place], [address], 06/16/2020 01:44:40 06/15/2006/15/2020 CMP, serum or plasm a glucose 86 mg/dL 74-106 Not Available [facility] [place], [address], 06/16/2020 01:44:40 06/15/2006/15/2020 CMP, serum or plasm a calcium, serum 9.3 mg/dL 8.5-10 .1 Not Available [facility] [place], [address], 06/16/2020 01:44:40 06/15/2006/15/2020 CMP, serum or plasm a anion gap 6.0 mmol/ L 0.0-15 .0 Not Available [facility] [address] [place], [address], 06/16/2020 01:44:40 06/15/2006/15/2020 CMP, serum or plasm a albumin 4.0 g/dL 3.4-5. 0 Not Available [facility] [place], [address], 06/16/2020 01:44:40 06/15/2006/15/2020 CMP, serum or plasm a bilirubin-to jarret 0.4 mg/dL 0.2-1. 0 Not Available [facility] [place], [address], 06/16/2020 01:44:40 06/15/2006/15/2020 CMP, serum or plasm a alkaline P'tase 62 IU/L 45-117 Not Available [facility] [place], [address], 06/16/2020 01:44:40 06/15/20 20 06/15/2020 CMP, serum or plasm a protein total 8.0 g/dL 6.4-8. 2 Not Available [facility] [address] [place], [address], 06/16/2020 01:44:40 06/15/20 20 06/15/2020 CMP, serum or plasm a AST (SGOT) 13 IU/L 12-37 Not Available [facility] [address] [place], [address], 06/16/2020 01:44:40 06/15/20 20 06/15/2020 CMP, serum or plasm a ALT (SGPT) 20 IU/L 12-68 Not Available [facility] [address] [place], [address], 06/16/2020 01:44:40 06/15/20 20 06/15/2020 iron panel , serum or plasm a TIBC 410 ug/dL 250-45 0 Not Available [facility] [place], [address], 06/16/2020 01:44:41 06/15/20 20 06/15/2020 iron panel , serum or plasm a iron saturation 22 % 15-50 Not Available [facility] [place], [address], 06/16/2020 01:44:41 06/15/20 20 06/15/2020 iron panel , serum or plasm a ferritin, serum 14 NG/mL 8-388 Not Available [facility] [place], [address], 06/16/2020 01:44:41 06/15/20 20 06/15/2020 iron panel , serum or plasm a iron 92 ug/dL 50-170 Not Available [facility] [address] [place], [address], 06/16/2020 01:44:41 06/15/20 20 06/15/2020 iron panel , serum or plasm a transferrin, serum 334 mg/dL 200-36 0 Not Available [facility] [address], [place], [address], 06/16/2020 01:44:41 06/15/20 20 06/15/2020 thyro id casca de, serum TSH 2.140 uIU/m L 0.358- 3.740 Not Available [facility] [address], [place], [address], 06/16/2020 01:47:31 06/15/20 20 06/15/2020 bacte rial vagin osis + vagin itis panel , vagin al Unknown Analyte positi ve Not Available [id number]_ ed en [address], [place], [address], 06/15/2020 15:51:07 06/15/20 20 06/15/2020 bacte rial vagin osis + vagin itis panel , vagin al Unknown Analyte negati ve Not Available [email or web address] ed en [address], [place], [address], 06/15/2020 15:51:07 06/15/20 20 06/15/2020 bacte rial vagin osis + vagin itis panel , vagin al Unknown Analyte negati ve Not Available [id number]_ ed en [address], [place], [address], 06/15/2020 15:51:07 06/15/20 20 06/15/2020 bacte rial vagin osis + vagin itis panel , vagin al Unknown Analyte abnorm al Not Available [id number]_ ed en [address], [place], [place], [address], 06/15/2020 15:51:07 07/17/20 20 07/17/2020 CBC WBC 7.3 K/uL 4.3-10 .8 Not Available [facility] [address] [place], [address], 07/17/2020 17:32:43 07/17/20 20 07/17/2020 CBC RBC 4.32 M/uL 4.20-5 .40 Not Available [facility] [address] [place], [address], 07/17/2020 17:32:43 07/17/20 20 07/17/2020 CBC hemoglobin 12.2 gm/dL 12.0-1 6.0 Not Available [facility] [address] [place], [address], 07/17/2020 17:32:43 07/17/20 20 07/17/2020 CBC hematocrit 37.5 % 36.0-4 8.0 Not Available [facility] [address] [place], [address], 07/17/2020 17:32:43 07/17/20 20 07/17/2020 CBC MCV 87 fL 80-100 Not Available [facility] [address] [place], [address], 07/17/2020 17:32:43 07/17/20 20 07/17/2020 CBC MCH 28 pg 27-33 Not Available [facility] [address] [place], [address], 07/17/2020 17:32:43 07/17/20 20 07/17/2020 CBC MCHC 33 gm/dL 33-36 Not Available [facility] [address] [place], [address], 07/17/2020 17:32:43 07/17/20 20 07/17/2020 CBC RDW 12.3 % 11.5-1 4.5 Not Available [facility] [address] [place], [address], 07/17/2020 17:32:43 07/17/20 20 07/17/2020 CBC platelet count 455 K/uL 150-40 0 high Not Available [facility] [address], [place], [address], 07/17/2020 17:32:43 07/17/20 20 07/17/2020 CBC MPV 9.7 6.5-12 Not Available [facility] [address], [place], [address], 07/17/2020 17:32:43 06/20/20 20 US, ann s No observ ation record ed. [email or web address] [address], [place], [address], 06/20/2020 14:31:33 Result Notes None recorded. Problems Name Problem SNOMED Code Status Onset Date Resolution Date Notes Provider Name and Address Organization Details Recorded Time Uses IUD (intrauterine device) contraception 035482777 Active 2018 Not Available [facility] 0 15:36:36 Anxiety 36023951 Active 2019 Shana Grady (TERMED) maddie, [facility] 0 15:34:32 Problem Notes None recorded. Procedures Surgical History Date Name Laterality Status Provider Name and Address Organization Details Recorded Time 11/08/19 21 Cedeño Catheter Removal (UE[facility]) completed Tierra Alonso) [facility] [facility] 11/08/2020 14:09:25 11/06/19 21 rhinoseptoplasty completed Tierra Page(LEE) [place] [facility] 11/08/2020 14:11:54 06/20/20 20 IUD Removal Procedure Note ([facility]) completed DOMINIC BOLAND, FILING WRITER [address] [facility],[address], [place], [address], [place] [facility] 06/20/2020 12:46:04 01/27/20 19 Date of Last Pap Smear completed Shana Grady (TERMED) [place] [facility] 06/15/2020 12:29:39 Imaging Results Imaging Date Name Status LastModified by Organiz ation Details LastModified Time 06/20/2020 US, pelvis completed [email or web address] [address], [place], [address], 06/20/2020 14:31:33 Procedure Notes None recorded. Medical Equipment None Reported. Allergies Allergen ID Allergen Name Allergen Category Reaction Reaction Severity Criticality Documentation Date Start Date Code Code System Note Provider Name and Address Organization Details Recorded Time 804380 sulfameth oxazole medicatio n Not available Not available Not available 06/01/2020 50105 RxNorm Hives Not Available [facility] 0 14:50:52 086535 trimethop rim Not available Not available Not available Not available 06/01/2020 33166 RxNorm Hives Not Available [facility] 0 14:50:52 698880 nitrofura ntoin medicatio n Not available Not available Not available 06/01/2020 7454 RxNorm Hives Not Available [facility] 0 14:50:52 971320 nitrofura ntoin, macrocrys tals medicatio n Not available Not available Not available 06/01/2020 99971 9 RxNorm Hives Not Available [facility] 0 14:50:52 Medications Name Sig Start Date Stop Date Status Note LastModified by Organization Details LastModified Time cephalexin 250 mg capsule TAKE 3 CAPSULES BY MOUTH TWICE DAILY DIRECTED active Not Available Not Available No t Available hydrocodon e 5 mg-acetami nophen 325 mg tablet TAKE 1 2 TABS BY MOUTH EVERY 4 6 HRS NEEDED active Not Available Not Available No t Available metronidaz ole 0.75 % (37.5 mg/5 gram) vaginal gel Insert 1 applicat orful every day by vaginal route. 06/20 completed Not Available Not Available Not Available metronidaz ole 500 mg tablet 06/20 completed Not Available Not Available Not Available ciprofloxa rich 500 mg tablet 06/20 completed Not Available Not Available Not Available propranolo l 10 mg tablet 06/20 completed Not Available Not Available Not Available cephalexin 500 mg capsule 06/20 completed Not Available Not Available Not Available fluoxetine 20 mg tablet Take 1 tablet every other day by oral route. 11/08 completed Not Available Not Available Not Available mupirocin 2 % topical ointment 06/20 completed Not Available Not Available Not Available methylpred nisolone 4 mg tablets in a dose pack TAKE 6 TABLETS ON DAY 1 DIRECTED ON PACKAGE AND DECREASE BY 1 TAB EACH DAY FOR A TOTAL OF 6 DAYS 11/08 completed Not Available Not Available Not Available ondansetro n 4 mg disintegra ting tablet TAKE 1 TABLET BY MOUTH EVERY 6 HOURS NEEDED. (INS MAX 9 TABS) active Not Available Not Available No t Available fluoxetine 20 mg capsule TAKE 1 CAPSULE BY MOUTH EVERY DAY active Not Available Not Available No t Available bupropion HCl XL 150 mg 24 hr tablet, extended release 06/20 completed Not Available Not Available Not Available ParaGard T 380A 06/20 completed placed 12/14/19 19 Not Available Not Available Not Available multivitam in 06/15 completed Not Available Not Available Not Available Probiotic (B. coagulans) 10 billion cell capsule,de layed release Take by oral route. 06/20 completed Not Available Not Available Not Available Afluria Qd (36 mos up)(PF)60 mcg (15 mcg x4)/0.5 mL IM syringe 06/19 completed Not Available Not Available Not Available Vitals Date Recorded Body weight Body mass index (BMI) Body height Systolic blood pressure Diastolic blood pressure Provider Name and Address Organization Details Last Updated DateTime 06/15/2020 68558.38 g 25.7 kg/m2 165.1 cm 116 mm[Hg] 64 mm[Hg] Shana Grady (TERMED) [facility] 0 15:42:29 Date Recorded Body height Body mass index (BMI) Body weight Systolic blood pressure Diastolic blood pressure Provider Name and Address Organization Details Last Updated DateTime 06/20/2020 165.1 cm 25.5 kg/m2 32015.63 g 102 mm[Hg] 68 mm[Hg] Shana Grady (TERMED) [facility] 0 12:23:46 Date Recorded Body height Body mass index (BMI) Body weight Systolic blood pressure Diastolic blood pressure Provider Name and Address Organization Details Last Updated DateTime 11/08/2020 165.1 cm 26.5 kg/m2 35738.19 g 120 mm[Hg] 70 mm[Hg] Tierra Page(T ERM) [facility] 1 14:12:46 Social History Question Answer Notes LastModified by Organizat ion Details LastModified Time Tobacco Smoking Status Former Smoker Shana Grady (TERMED) null, [facility] 06/15/2020 15:37:01 What Is Your Level Of Alcohol Consumption? Occasional Very Rare Information not available 06/02/2020 What Is Your Level Of Caffeine Consumption? Moderate Coffee 1 Cup Daily Information not available 06/02/2020 Are You Currently Employed? Yes Information not available 06/15/2020 What Type Of Diet Are You Following? 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 Information not available 06/15/2020 Marital Status Single [email or web address] Information not available 06/15/2020 Are You Sexually Active? No [email or web address] Information not available 06/15/2020 Are You Passively Exposed To Smoke? No [email or web address] Information not available 06/15/2020 Sex: Unknown Functional Status Question Answer Note LastModified by Organizat ion Details LastModified Time What is your exercise level? Moderate walking daily [email or web address] Information not available 06/15/2020 Mental Status None recorded. Family History Relationship Description Onset Age of this Age Resolved Age Notes LastModified by Organization Details LastModified Time Father Family history of malignant neoplasm of testis [email or web address] Not available 2019 18:34:08 Maternal Grandfather Family history of malignant neoplasm [email or web address] Not available 2019 18:34:08 Maternal Uncle Family history of malignant neoplasm [email or web address] Not available 2019 18:34:08 Medical History Condition Response Urology- Recurrent Urinary Tract Infecti ons Y Neurology- Headaches/Migraines Y Gynecological History Statement/Question Response Sexually Active Y HPV Test Negative Date of LMP 06/06/2020 HPV Vaccine Complete Current Control Method IUD Menstrual Cycle Length (days) 28 Date of Last Pap Smear 01/26/2019 History of Infertility N Obstetrics History GPAL:G 1 P 1 0 0 1 Type Value Full Term 1 Living 1 Total 1 Past Encounters Encounter ID Performer Location Encounter Start Date Encounter Closed Date Diagnosis/Indication Diagnosis SNOMED-CT Code Diagnosis ICD10 Code Diagnosis Note [id number] KANIKA ASENCIO PA-C [id number] _JOSE [address],[facility] [address] [place] [address] 06/15/2020 15:25:14 06/15/2020 16:27:35 Vaginal discharge 572134613 N89.8 Loss of hair 662477731 L 65.9 started 2mo thought initially related to hair being over processed feeling fatigued, recently started prozac Uses IUD (intrauterine device) contraception 086016290 Z97.5 pt feels that IUD strings feel long. visualized on exam. pt to return for IUD check u/s [id number] DOMINIC BOLAND CNP [id number] [address] [place] [address] 06/20/2020 12:18:47 06/20/2020 12:51:00 Uses IUD (intrauterine device) contraception 417175521 Z97.5 [id number] NISH BURCH MD [id number] _[address] [place] [address] 06/20/2020 11:39:44 06/20/2020 12:41:32 IUD check 770171364 Z30.900 [id number] LAITH DENT MD [id number] T_[facility] [address] [facility],[address] [place] [address] 11/08/2020 14:00:32 11/08/2020 14:55:45 Acute retention of urine 014788337 R33.8 likely due to scopolamin e effect. Cath removed. Await voiding trial Health Concerns Section Related Observation LastModified by Organization Detai ls LastModified Time None Recorded Concern Status LastModified by Organization Details LastModified Time None Recorded Advance Directives Directive None Recorded Payers Encounter Date Sequence Insurance Name Policy Number Policy Christiansen Covered Member ID Christiansen Member ID Guarantor Name 06/15/2020 1 [employer] ([place]PO) [id number] A Margaret Tavon [id number] Margaret Tavon 06/20/2020 1 [place] [id number] A Margaret Tavon [id number] Margaret Tavon 06/20/2020 1 [place]) [id number] A Margaret Tavon [id number] Margaret Tavon 11/08/2020 1 [place] ([place]PO) [id number] A Margaret Tavon [id number] Margaret Tavon Notes Date Note Type Note Provider Name and Address Organization Details Recorded Time 06/15/2020 text/html Discharge ([facility])Reported bypatient.* Location:vaginal * Quality:clear; yellow * Severity:moderate * Duration:2 weeks; started after last period * Timing:Onset: gradual * Context:recent antibiotics; IUD- paraguard * Associated Signs & Symptoms:no fever/chills; no urinary incontinence;burni ng; no painful intercourseNotes:W as seen in UC around 2-3 week of April and diagnosed with BV, treated with Miconazole and after her menstrual cycle symptoms started again. Odor, vaginal discharge, burning with urination. smell is the most bothersome sx LMP 06/06/20 noting hair loss and fatigue. requesting labs feels that IUD strings are long KANIKA ASENCIO PA-C [id number] [facility],[address], [place], [address], [place] [facility] 06/15/2020 16:35:04 06/20/2020 text/html IUD Follow-Up ([facility])Reported bypatient.Notes:Pavel marroquin IUD noted to be in lower uterine segment on U/S. She was checking the strings and noticed they were longer. Likes the paragard and would like it replaced. She had Mirena in the past but would get back to back vaginal infections. She cannot take OCP's as she has a history of migraine with aura. DOMINIC BOLAND, FILING WRITER [address] [facility],[address], [place], [address], [place] [facility] 06/20/2020 12:46:54 11/08/2020 text/html ER F/U cath removal. Recently had a hole patched after her deviated spetoplasty. Sent home and couldnt urinate. Straight cathed at urgency room, and then still was in retention and went to ER for catheter placement Friday night. They gave her antibiotics. She had a scopolamnie patch placed and it apparently had slipped and was down her neck. This could have resulted in anti-cholinergic effect that prevented voiding. IT has been off for 24 hours and we will have her stay here, drink water and urinate once here so we can be sure the episode has passed. 15 [place] [address] [facility],[address], [place], [address], [place] [facility] 11/08/2020 14:26:21 OBGyn Episode Ob Episode Information Episode Created Date Number of Fetuses Patient Bloodtype Patient rh Status Prepregnancy Weight lbs Domestic Partner Domestic Partner Phone Father Name Business Continuity Consultant Status 06/15/20 20 1 CLOSED Fetus Data First Name Last Name Admitted to NICU Weight (g) Sex Living Outcome Pediatric Complications Fetus ID Race Codes Race Delivery Type 3401.94 M Full Term 2463 Jalen Calculation Initial Jalen Date Initial Exam Date Initial Exam Provider Initial Ultrasound Date Last Menstrual Period Date Ultra Sound Weeks Gestation 0 Eighteen To Twenty Week Jalen Update Ultra Sound Date Fundal Height At Umbil Quickening Date Ultra Sound Latest Weeks Gestation Final Jalen Confirmed By Final Jalen Confirmed Date Final Jalen Date Ultra Sound Latest Days Gestation 0 0 Menstrual History Last Menstrual Date Menses Monthly On Bcp Conception Prior Menses Frequency Hcg Plus Date Menarche Onset Age Delivery Information Delivery Date Delivery Type Labor Anesthesia Weeks Gestation Incision Type Labor Labor Length Hrs Delivered By Post Complications Tubal Sterilization Discharge Date Comments 7 Regional- idural 40 Discharge Information Feeding Method Contraceptive Method Maternal HG B and HCT Levels
--- OUTSIDE RECORDS SUMMARY | 2025-01-18 01:38 | XMS_ITS ---
Author Organization [facility] Address [address] [place] [address] Care Team Providers Care Invoice Clerk Name Role Phone None, No PCP Primary Care Provider Lee Ann Chavez [phone] Allergies Allergen (clinical drug ingredient) Drug/Non Drug Allergy documented on EMR Reaction Allergy Type Onset Date Status sulfamethoxazole / trimethoprim Bactrim Unknown Drug Allergy Active nitrofurantoin, macrocrystals / nitrofurantoin, monohydrate Macrobid Unknown Drug Allergy Active Results Component Value Reference Range Notes CBC (INCLUDES DIFF/PLT) Reviewed date:08/23/2024 12:16:00 PM Interpretation: Performing Lab:[facility] [id number] [place] Mary Notes/Report: WHITE BLOOD CELL COUNT 8.6 3.8-10.8 Thousand/ uL RED BLOOD CELL COUNT 3.94 3.80-5.10 Million/uL HEMOGLOBIN 11.5 11.7-15.5 g/dL HEMATOCRIT 34.2 35.0-45.0 % MCV 86.8 80.0-100.0 fL MCH 29.2 27.0-33.0 pg MCHC 33.6 32.0-36.0 g/dL For adults, a slight decrease in the calculated MCHC value (in the range of 30 to 32 g/dL) is most likely not clinically significant; however, it should be interpreted with caution in correlation with other red cell parameters and the patient's clinical condition. 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 Daily nausea and having some GI upset recently. Denies vomiting, cramping, spotting, edema, and HAs. Moments of round ligament pain. Medications Medication SIG (Take, Route, Frequency, Duration) Notes Start Date End Date Status Estradiol 0.1 MG/GM 1 gram Vaginally Onc e daily for two weeks. Then decrease frequency to two times a week. for 90 days 07/23/2022 Not-Taking DULoxetine HCl 20 MG 1 capsule Orally On ce a day Active FLUoxetine HCl 10 MG 1 capsule Orally On ce a day Active Metoclopramide HCl 10 MG 1 tablet Orally every 8 hours as needed for nausea or headache for 30 days 05/24/2024 Active Probiotic prn Active Cephalexin 500 MG 1 tablet Orally Four times a day for 5 day(s) 06/05/2022 Not-Taking Wellbutrin Flakito lam Social History Tobacco Use: Social History Observation Description Date Details (start date - stop date) Current Smoker NA - NA Tobacco Use/Smoking Question Answer Notes Are you a current smoker Alcohol Screen (Audit-C) Question Answer Notes Did you have a drink containing alcohol in the p ast year? Yes Points 0 Interpretation Negative Vital Signs Blood pressure systolic 124 mm Hg 08/20/20 24 Blood pressure diastolic 62 mm Hg 024 Height 66 in 08/20/2024 Weight 199.1 lbs 08/20/2024 BMI 32.13 kg/m2 08/20/2024 Encounters Encounter Location Date Provider Diagnosis [facility] [address] [place] [address] 08/20/2024 Lee Ann Cho Encounter for supervision of other normal in second trimester Z34.82 Assessments Encounter Date Diagnosis (ICD Code) Assessment Notes Treatment Notes Treatment Clinical Notes Section Notes 08/20/2024 Encounter for supervision of other normal in second trimester (ICD-10 - Z34.82) Plan Of Treatment Next Appt Details Follow Up: 4 Weeks, Reason: Progress Notes * Meghna BURRELLB:1985 (38 yo F)Acc No.[id number]:08/20/2024 Progress Note Patient: Margaret GRAY Provider: Vasyl Cho CNM :1985 A ge:38 Y S ex:Female Date:08/20/2024 Address:[address] [facility] Pcp:No PCP None Subjective: * Chief Complaints: * 2 0w // US PriorLMP: 03/29/24 ALLAN: 01/03/25 GP: 11/27 ABO: A- GA: 20w4d DD, SOLE BLACKER+FM. Daily nausea and having some GI upset recently. Denies vomiting, cramping, spotting, edema, and HAs. Moments of round ligament pain. 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 B irth Control: C urrently . S exual Activity C urrently sexually active. S exually Tranmitted Disease (STD) N one. * OB History: G PAL G 2P1 x1NSVD. G PAL: G 5G0254. P regnancy # 1: 2 017, normal spontaneous vaginal delivery (), Full term, Male. P regnancy # 2: 2 024, Current .?GP G ravida: 0 03/29/2024. * Surgical History: L eft wrist septoplasty revision septoplasty * Hospitalization/Major Diagno stic Procedure: D elivery/ * Family History: Grandfather: High blood pressure and diabetes. * Social History: T obacco Use: T obacco Use/Smoking A re you a c urrent smoker. D rugs/Alcohol: D rugs H ave you used drugs other than those for medical reasons in the past 12 months??No. A lcohol Screen (Audit-C) D id you have a drink containing alcohol in the past year? Yes, P oints 0 , I nterpretation N egative. C affeine I ntake: 1 -2 cups per day. D o you smoke marijuana?: Denies. Do you drink alcohol?: Yes. M iscellaneous: E xercise: daily. * Medications: T akingDULoxetine HCl 20 MG Capsule Delayed Release Particles 1 capsule Orally Once a day FLUoxetine HCl 10 MG Capsule 1 capsule Orally Once a day Probiotic , Notes to Pharmacist: prnMetoclopramide HCl 10 MG Tablet 1 tablet Orally every 8 hours as needed for nausea or headache Taking DULoxetine HCl 20 MG Capsule Delayed Release Particles 1 capsule Orally Once a day Taking FLUoxetine HCl 10 MG Capsule 1 capsule Orally Once a day Taking Probiotic , Notes to Pharmacist: prnTaking Metoclopramide HCl 10 MG Tablet 1 tablet Orally every 8 hours as needed for nausea or headache Not-TakingWellbutrin Cephalexin 500 MG Tablet 1 tablet Orally Four times a day Estradiol 0.1 MG/GM Cream 1 gram Vaginally Once daily for two weeks. Then decrease frequency to two times a week. Medication List reviewed and reconciled with the patientNot-Taking Wellbutrin Not-Taking Cephalexin 500 MG Tablet 1 tablet Orally Four times a day Not-Taking Estradiol 0.1 MG/GM Cream 1 gram Vaginally Once daily for two weeks. Then decrease frequency to two times a week. Medication List reviewed and reconciled with the patient * Allergies: M acrobidBactrimno[Allergies Verified] Objective: * Vitals: H t: 66 in, Wt:199.1lbs, BP:124/62mm Hg, BMI:32.13Index. Assessment: * Assessment: 1. E ncounter for supervision of other normal in second trimester - Z34.82 (Primary)? Plan: * Treatment: Value Reference Range W JANET BLOOD CELL COUNT 8.6 3.8-10.8 - Thousan d/uL * R ED BLOOD CELL COUNT 3.94 3.80-5.10 - Million/ uL * H EMOGLOBIN 11.5 L 11.7-15.5 - g/dL * H EMATOCRIT 34.2 L 35.0-45.0 - % * M CV 86.8 80.0-100.0 - fL * M CH 29.2 27.0-33.0 - pg * M CHC 33.6 32.0-36.0 - g/dL * R DW 13.3 11.0-15.0 - % * P LATELET COUNT 502 H 140-400 - Thousand/u L * N EUTROPHILS 74.7 - % * A BSOLUTE NEUTROPHILS 6424 1532-6202 - cells/uL * L YMPHOCYTES 16.8 - % * A BSOLUTE LYMPHOCYTES 4818 719-8506 - cells/uL * M ONOCYTES 7.1 - % * A BSOLUTE MONOCYTES 611 200-950 - cells/uL * E OSINOPHILS 1.2 - % * A BSOLUTE EOSINOPHILS 103 15-500 - cells/uL * B ASOPHILS 0.2 - % * A BSOLUTE BASOPHILS 17 0-200 - cells/uL * M PV 9.7 7.5-12.5 - fL * Platelets are a little high. Will recheck this at 28 weeks. Hemoglobin looks relatively normal for , but you may still benefit from taking supplemental iron. * Procedure Codes: 8 5025 COMPLETE CBC W/AUTO DIFF WBC, Modifiers: 90 24443 VENIPUNCT, ROUTINE*88083 MATERNITY CARE PROCEDURE * Follow Up: 4 Weeks * Images: Billing Information: * Visit Code: * Procedure Codes: 04494 COMPLETE CBC W/AUTO DIFF WBC. Modifiers: 90 53172 VENIPUNCT, ROUTINE*. 19922 MATERNITY CARE PROCEDURE. * Sign off status: Completed true * Provider: Vasyl Cho CNM Date: Generated for Manuel mercedes/Henry/eTransmitting on: 0 01/18/2025 01:37 AM CDT
--- OUTSIDE RECORDS SUMMARY | 2025-01-18 01:38 | XMS_ITS ---
Author Organization [facility] Address [address] [place] [address] Care Team Providers Care Warranty Manager Name Role Phone None, No PCP Primary Care Provider Unavailabl Lee Ann Vasques Unavailable [phone] Eul, Meera Unavailable [phone] REASON FOR VISIT Zofran Rx not sent-PT LVM 08/24 Medications Medication SIG (Take, Route, Fr equency, Duration) Notes Start Date End Date Status Ondansetron HCl 4 MG 1 tablet Orally Onc e a day for 30 days 08/24/2024 Active Encounters Encounter Location Date Provider Diagnosis [facility] [address] [place] [address] 08/23/2024 Meera Eul Plan Of Treatment Medication Medication Name Sig Start Date Stop Date Notes Ondansetron HCl 4 MG 1 tablet Orally Onc e a day for 30 days 08/24/2024 Progress Notes * Meghna BURRELLB:1985 (38 yo F)Acc No.[id number]:08/23/2024 Patient: Margaret GRAY :1985 A ge:38 Y S ex:Female Address:[address] [place], [address] * Refills Start Ondansetron HCl Tablet, 4 MG, Orally, 30, 1 tablet, Once a day, 30 days, Refills=1 * true * Date: Generated for Printi ng/Faxing/eTransmitting on: 0 01/18/2025 01:38 AM CDT
--- OUTSIDE RECORDS SUMMARY | 2025-01-18 01:38 | XMS_ITS | Data Portability ---
Author Organization [employer], [employer] [facility] Address [address] [facility] [address] [place] [address] Assessment Encounter Date Assessment Date Assessment LastModified by Organization Details LastModified Time 09/09/2017 09/09/2017 30 minutes spent with client [email or web address] Not available 09/09/2017 15:34:23 09/17/2017 09/17/2017 30 minutes spent with client [email or web address] Not available 09/17/2017 13:36:45 10/29/2017 10/29/2017 Discussed the following with the patient: Signs and symptoms of depression. Continue PNV and increase diet by 500 haroon per day while . Hydration. Sexuality, return to fertility, control options. *Considering using condoms at this time if she becomes sexually active. Contraceptive resources given and discussed. To call if she decides to try alternate method. Activity levels related to lochia amount and bleeding changes. Excercise. Normal VS. Reviewed warning signs, CNM electronic development technician #. Routine gynecology and access to CNM care. RTO in 2-4 months for well woman exam or PRN. [email or web address] Not available 11/12/2017 20:11:24 11/22/2017 11/22/2017 Insufficient milk supply, plan as per pt instructions [email or web address] Not available 11/24/2017 16:26:20 Plan of Treatment Reminders Order Date Submit Date Provider Last Modified By Organization Details Last Modified Time Details Appointments None record ed. Lab None record ed. Referral None record ed. Procedures None record ed. Surgeries None record ed. Imaging None record ed. Medication Orders None record ed. Patient TargetsNo targets recorded. Patient Instructions Encounter Date Encounter Id Patient Instructions Last Modified By Organization Details Last Modified Time 11/22/2017 [id number] Feeding Plan -Continue to feed on demand -Feed 2oz after every feeding -Pump after every feeding -Bring face in tighter and squeeze breast when flow starts to slow, to increase flow and breast emptying -squeeze breasts while pumping for same reason -Take supplements as discussed -Follow up weight check on 12/02 -Contact me with any questions in the meanwhile [email or web address] Not available 11/24/2017 16:26:25 Reason for Referral None Reported. Results Created Date Observation Date Name Description Value Unit Range Abnormal Flag Note LastModifiedBy Organization Detail LastModifiedTime 08/07/20 17 08/09/2017 cultu re, urine culture, urine, routine SEE NOTE CULTU RE, URINE , ROUTI NE MICRO NUMBE R: [id number] TEST STATU S: FINAL SPECI MEN SOURC E: CLEAN CATCH SPECI MEN QUALI TY: ADEQU ATE RESUL T: Multi ple organ isms prese nt, each less than 10,00 0 CFU/m L. These organ isms, commo nly found on exter nal and inter nal genit aba, are consi dered to be colon izers . No furth er testi ng perfo rmed. Not Available [facility] [address] [place], [address], 08/09/2017 21:16:43 08/21/20 17 08/24/2017 strep tococ cus group B, cultu re, unspe cifie d speci men culture, group B strep with susceptibili ty SEE NOTE CULTU RE, GROUP B STREP WITH SUSCE PTIBI LITY MICRO NUMBE R: [id number] TEST STATU S: FINAL SPECI MEN SOURC E: VAGIN AL/RE CTAL SWAB SPECI MEN QUALI TY: ADEQU ATE RESUL T: No group B Strep tococ cus isola vania Not Available [facility] [address] [place], [address], 08/24/2017 12:27:10 Result Notes None recorded. Problems Name Problem SNOMED Code Status Onset Date Resolution Date Notes Provider Name and Address Organization Details Recorded Time Recurren t urinary tract infectio n [id number] Active 2016 Frequent UTI, after almost every IC. Was using antibioti cs but was becoming allergic or resistant . Was using D-Mannose daily prior to , then with s/s would take every 2-3 hours for 5 days. Mikaela Morataya APRN CNM [facility] ASSURED INFORMATION SECURITY [facility]. 7 19:28:01 Pregnanc y [id number] Completed 201611/20/2017 Lissette perkins [facility] ASSURED INFORMATION SECURITY [facility]. 8 11:01:33 Primigra russ [id number] Completed [facility] WB consent signed. Has doulas- [place]. Lissette perkins [facility] ASSURED INFORMATION SECURITY [facility]. 8 11:01:28 Anxiety 40398429 Completed stable Lissette Yossi perkins [facility]. 8 11:01:28 Carrier of disorder [id number] Completed SMA carrier, FOB refused testing. iLssette perkins [facility] ASSURED INFORMATION SECURITY [facility]. 8 11:01:28 Low lying placenta 959591612 Completed FU done @ 28 wks, RESOLVED Lissetteduc perkins [facility] ASSURED INFORMATION SECURITY [facility]. 8 11:01:28 RhD negative 486371203 Completed Rhogam given @ 28 weeks Lissetteduc perkins [facility]. 8 11:01:28 Problem Notes None recorded. Procedures Surgical History Date Name Laterality Status Provider Name and Address Organization Details Recorded Time 06/10/2016 Other completed [facility] [employer] 05/28/2017 16:19:05 11/27/2015 Date of Last Pap Smear completed Mikaela Morat[facility]ED INFORMATION SECURITY [facility]. 05/28/2017 16:20:15 Other completed [facility] 05/28/2017 16:31:33 Imaging Results None recorded. Procedure Notes None recorded. Medical Equipment None Reported. Allergies Allergen ID Allergen Name Allergen Category Reaction Reaction Severity Criticality Documentation Date Start Date Code Code System Note Provider Name and Address Organization Details Recorded Time 3528 Bactrim medicatio n hives Not available Not available 05/28/2017 25315 9 RxNorm Mikaela Morataya APRN CNM KEERTHI null, [facility] [employer] 7 16:33:13 3529 Macrobid medicatio n hives moderate Not available 05/28/2017 73733 1 RxNorm Yvette Saxena RN null, [facility] 7 16:05:40 3530 Bactrim medicatio n hives moderate Not available 05/28/2017 30553 9 RxNorm Mikaela Morataya APRN CNM KEERTHI null, [facility] 7 16:19:04 3531 trimethop rim medicatio n Not available Not available Not available 05/29/2017 53641 RxNorm Yvette Saxena RN null, [facility] 7 16:06:09 3532 sulfameth oxazole medicatio n Not available Not available Not available 05/29/2017 28281 RxNorm Yvette Saxena RN null, [facility] [employer] 7 16:06:19 Medications Name Sig Start Date Stop Date Status Note LastModified by Organization Details LastModified Time dicloxaci llin 500 mg capsule Take 1 capsule every 6 hours by oral route for 10 days. active Not Available Not Available No t Available hydrocodo ne 5 mg-acetam inophen 325 mg tablet 05/28 completed Not Available Not Available Not Available ciproflox acin 500 mg tablet 05/28 completed for frequent UTI after IC, not taking in pregnanc y Not Available Not Available Not Available dicloxaci llin 250 mg capsule 05/28 completed Not Available Not Available Not Available tinidazol e 500 mg tablet 05/28 completed Not Available Not Available Not Available active Not Available Not Avai lable Not Available RhoGAM Ultra-Curtis tered PLUS 1,500 unit (300 mcg) intramusc ular syringe Inject 1 syringe by intramus cular route. 2016 active Not Available Not Available Not Avai lable Probiotic daily active Not Available Not Danica ilable Not Available Vitals Date Recorded Body height Body mass index (BMI) Heart rate Systolic blood pressure Diastolic blood pressure Provider Name and Address Organization Details Last Updated DateTime 09/04/2017 165.1 cm 28.6 kg/m2 99 /min 115 mm[Hg] 73 mm[Hg] Jada Hernandez LPN [facility]. 7 15:31:59 Date Recorded Body weight Provider Name an d Address Organization Details Last Updated DateTime 09/04/2017 72105.638536 g Mihaela Grullon [facility] 09/04/2017 15:39:51 Date Recorded Body height Body mass index (BMI) Heart rate Systolic blood pressure Diastolic blood pressure Provider Name and Address Organization Details Last Updated DateTime 09/09/2017 165.1 cm 28.9 kg/m2 84 /min 124 mm[Hg] 66 mm[Hg] [facility] 7 15:32:18 Date Recorded Body weight Provider Name an d Address Organization Details Last Updated DateTime 09/09/2017 80318.326168 g Any denson APRN [facility] 09/09/2017 15:40:23 Date Recorded Body height Body mass index (BMI) Heart rate Systolic blood pressure Diastolic blood pressure Provider Name and Address Organization Details Last Updated DateTime 09/17/2017 165.1 cm 28.7 kg/m2 103 /min 117 mm[Hg] 85 mm[Hg] [facility] 7 13:16:45 Date Recorded Body weight Provider Name an d Address Organization Details Last Updated DateTime 09/17/2017 43705.729893 g Mikaela Morataya APRN [facility]NP[facility] 09/17/2017 13:20:31 Date Recorded Body height Systolic blood pressure Diastolic blood pressure Provider Name and Address Organization Details Last Updated DateTime 10/29/2017 165.1 cm 93 mm[Hg] 74 mm[Hg] Yvette Saxena RN [facility] 10/29/2017 10:00:07 Social History Question Answer Notes LastModified by Organizat ion Details LastModified Time Tobacco Smoking Status Former Smoker quit when found out she was Not Available [employer] 08/22/2020 03:16:38 Do You Have An Advance Directive? No [id number] Information not available 08/22/2020 What Is Your Level Of Alcohol Consumption? None [id number] Information not available 08/22/2020 If You Are , What Was Your Level Of Alcohol Consumption Prior To ? Occasional [id number] Information not available 08/22/2020 Are You Blind Or Do You Have Difficulty Seeing? No [id number] Information not available 08/22/2020 Is Blood Transfusion Acceptable In An Emergency? Yes [id number] Information not available 08/22/2020 Breast Feeding? No Informati on not available 05/28/2017 What Is Your Level Of Caffeine Consumption? Moderate 1/2 Caff Coffee Each Morning [id number] Information not available 08/22/2020 Live With Cats/exposure To Cat Litter No Information not available 05/28/2017 Are You Currently Employed? Yes [id number] Information not available 08/22/2020 Currently Yes Information not available 05/28/2017 What Type Of Diet Are You Following? REGULAR [id number] Information not available 08/22/2020 Which Illicit Or Recreational Drugs Have You Used? 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 No [id number] Information not available 08/22/2020 Have You Been Exposed To Heavy Metals? No [id number] Information not available 08/22/2020 Live Alone Or With Others? With Others Information not available 05/28/2017 Do You Restrict Your Eating In Any Way? No Information not available 05/28/2017 Do You Have People In Your Life You Can Reach Out To For Help Yes Information not available 05/28/2017 How Many Ounces Of Water Do You Drink Daily? (1 Liter = 32 Ounces) 100 Information not available 05/28/2017 Do You Have Any Transportation Challenges? No Information not available 05/28/2017 Do You Have Enough Food To Eat? Yes Information not available 05/28/2017 Marital Status Single Not In A Relationship , Very Little FOB Involvement. Ex Boyfriend Information not available 05/28/2017 What Was The Date Of Your Most Recent Tobacco Screening? 05/28/2017 [id number] Information not available 08/22/2020 What Is Your Relationship Status? Single [id number] Information not available 08/22/2020 Seat Belts Used Routinely Yes Information not available 05/28/2017 Are You Sexually Active? No [id number] Information not available 08/22/2020 Do You Have Smoke And Carbon Monoxide Detectors In Your Home? Yes [id number] Information not available 08/22/2020 Are You Passively Exposed To Smoke? No Information not available 05/28/2017 Smoking Pre- Yes Information not available 05/28/2017 General Stress Level Medium Information not available 05/28/2017 Sex: Unknown Functional Status Question Answer Note LastModified by Organizat ion Details LastModified Time What is your exercise level? Occasional walk [id number] Information not available 08/22/2020 Mental Status None recorded. Family History Relationship Description Onset Age of this Age Resolved Age Notes LastModified by Organization Details LastModified Time Maternal Grandfather Malignant lymphoma [email or web address] Not available 2016 15:33:05 Father Malignant tumor of testis [email or web address] Not available 2016 15:33:05 Paternal Grandfather Heart disease unsure of what but has had open heart surger y Not available 05/28/2017 16:23:02 Paternal Grandmother Aneurysm [email or web address] Not available 09/04 15:33:05 Notes:3 brothers healthy and well Medical History Condition Response Anesthesia complications N High blood pressure N Acid reflux (GERD) N Chronic pelvic pain N Anxiety Y Blood disorders N Blood transfusion N Thyroid Problems N Depression N Bipolar N Breast Problem N Varicose veins Y Headaches/Migraines Y Incontinence/leaking urine or stool N Infertility N Cancer N Anemia (low hemoglobin/iron) N Asthma N High cholesterol N Eating disorder N Endometriosis N delivery in past N Sexually transmitted infection N bleeding problems N Pelvic infection N Polycystic Ovarian Syndrome (PCOS) N Fibromyalgia N Osteoporosis N Gynecological History Statement/Question Response Date of LMP 12/11/2016 N HPV Vaccine Y N Duration of Flow (days) 6 Are you sexually active with men, women, both, or neither? men Frequency of Cycle (Q days) 25 N Date of Last Pap Smear 11/27/2015 LMP Definite Hormone Replacement Therapy N N Obstetrics History GPAL:G 1 P 1 0 0 0 Type Value Full Term 1 Total 1 Immunizations Vaccine Type Date Status Note Provider Nam e and Address Organization Details Recorded Time Tdap 07/11/2017 completed Not Available [employer] 11/14/2019 02:59:38 Past Encounters Encounter ID Performer Location Encounter Start Date Encounter Closed Date Diagnosis/Indication Diagnosis SNOMED-CT Code Diagnosis ICD10 Code Diagnosis Note [id number] Mikaela Morataya APRN [facility] MAIN OFF[facility] [address] [facility] [place] [address] 05/28/2017 15:55:58 05/29/2017 20:13:21 Routine care 177881834 Z34.90 Z36 Low lying placenta 90563 2006 O44.42 Gestation period, 24 weeks 697731655 Z3A.24 RhD negative 810169237 Z 01.83 Venereal d isease screening 770139754 Z11.3 [id number] Prudence Meng APRN [facility] [address] [place] [address] 06/26/2017 16:28:06 06/26/2017 17:41:02 Normal 45963716 Z34.03 RhD negative 176790790 Z 67.91 Z41.8 Gestation period, 28 weeks 41142893 Z3A.28 [id number] Prudence Meng APRN [facility] [address] [place] [address] 07/11/2017 17:19:58 07/14/2017 11:10:01 Normal 97611863 Z34.03 Gestation period, 30 weeks 07725143 Z3A.30 Active or passive immunization 601171036 Z23 [id number] Prudence Meng APRN [facility] [address] [place] [address] 07/16/2017 16:29:58 07/16/2017 17:06:50 Cramping pain 038271170 R52 [id number] Any Huston APRN [facility] MAIN OFFICE [address] [place] [address] 07/24/2017 12:51:29 07/25/2017 10:28:26 Normal 76495842 Z34.93 Childbirth education 702 881138 Z32.2 group care worker education 408 013933 Z32.3 [id number] Any Huston APRN [facility] MAIN OFF[facility] [address] [place] [address] 07/25/2017 15:05:32 07/25/2017 15:35:46 Normal 71406271 Z34.03 Gestation period, 32 weeks 2871582 Z3A.32 [id number] [facility] [address] [place] [address] 08/07/2017 14:47:37 08/08/2017 12:50:58 Normal 91124494 Z34.03 Increased frequency of urination 833845797 R35.0 [id number] Prudence Meng APRN [facility]IN OFF[facility] [address] [place] [address] 08/21/2017 15:15:23 08/21/2017 15:56:05 Routine care 595767905 Z34.93 Gestation period, 36 weeks 36732318 Z3A.36 [id number] Any Huston APRN [facility] MAIN OFFICE [address] [place] [address] 08/26/2017 17:19:18 08/26/2017 17:50:12 Normal 16941211 Z34.03 [id number] Mihaela Pritchettclara MAIN OFFICE [address] [place] [id number] 09/04/2017 15:28:06 09/04/2017 19:02:15 Normal 71999165 Z34.03 [id number] TATI Ford MAIN OFFICE [address] [place] [address] 09/09/2017 15:25:53 09/09/2017 16:01:08 Normal 66163711 Z34.03 Gestation period, 38 weeks 91707809 Z3A.38 [id number] Mikaela Morataya APRN [facility]M [facility] MAIN OFFICE [address] [place] [address] 09/17/2017 13:05:08 09/17/2017 14:30:20 Normal 25908343 Z34.03 Gestation period, 40 weeks 96888560 Z3A.40 [id number] [facility] [address] [place] [address] 10/29/2017 09:49:35 11/15/2017 23:39:22 care 106069501 Z39.1 [id number] Any Huston APRN CNM Home Visit [address] [place] [address] 11/24/2017 16:24:03 11/28/2017 13:54:03 problem 82111017 O92.79 O92.4 Z39.1 Health Concerns Section Related Observation LastModified by Organization Detai ls LastModified Time None Recorded Concern Status LastModified by Organization Details LastModified Time None Recorded Advance Directives Directive N: Payers Encounter Date Sequence Insurance Name Policy Number Policy Christiansen Covered Member ID Christiansen Member ID Guarantor Name 09/04/2017 1 [place] JASPRE[place] ARTIS ([place]PO) [id number] Margaret Tavon [id number] Margaret Tavon 09/09/2017 1 [place] ([place]PO) [id number] Margaret Tavon [id number] Margaret Tavon 09/17/2017 1 [place] BARB Lee JOSEPH CHANDRA (EPO) [id number] Margaret Tavon [id number] Margaret Tavon 10/29/2017 1 [place] JASPREET DAUGHERTYJENNIFER Lee JOSEPH CHANDRA (EPO) [id number] Margaret Tavon [id number] Margaret Tavon 11/22/2017 1 [place] JASPREET DAUGHERTYJENNIFER Rosa RUIZ CHANDRA (EPO) [id number] Margaret Tvaon [id number] Margaret Tavon Notes Date Note Type Note Provider Name and Address Organization Details Recorded Time 09/04/2017 text/html visitRe ported bypatient.Presenting symptomscurrently : weeks of gestation: 30-39 weeksNotes:38 weeks. Feeling well, but ready to be done with . [facility] reviewed. Knows when to call and how to reach. Plans on having FOB present for at if able. He will be coming from [place]. Wants to wait to decide until she has felt a contx. 30 minute visit. 5 minute exam. RTC weekly. Mihaela perkinsBeatrobo. 09/05/2017 16:36:55 09/09/2017 text/html Active FM (zeina lam a boy!). Feeling well overall. Tired. Went to chiropractor yesterday. Feeling intermittent cramps and BH ctxs. Drinking lots of water. Undecided about peds provider, but researching has reached out to other moms. Declines flu shot. Reviewed s/sx of labor, when to call, supervisor building maintenance #. RTC weekly. TATI Ford CNMBeatrobo. 09/09/2017 15:47:37 09/17/2017 text/html Ctx which starte d last evening around 11pm which started as period like cramps, are not 8-9 minutes apart, lasting 45-60 seconds, palpating moderate to firm. Able to talk through but breathing as well. Good FM. No bloody show or LOF. SVE 1/75/-1/midline/soft. Warning signs and when to call reviewed. To check in with CNM electronic development technician in 5-6 hours. Mikaela Morataya APRN [facility] perkins, [employer]. 09/17/2017 13:37:31 10/29/2017 text/html Here for 6 week PP visit. Lochia minimal spotting. Occasionally some pain behind pelvis when bearing down. improved in the last week. Has been working with [facility], wasn't getting any milk with pumping. Now able to get some with pumping. Was doing weight checks at peds, now gaining good weight. Emotionally feels really well. I stabilized in and feel like that has continued. Relationship going well with Fantasma and his family.Was getting BV regularly and UTIs with Mirena so she is unsure of contraceptive choice for PP period. No plans at this time to be sexually active.Hemorrhoid, one episode of bleeding. [facility] perkins, [place] [email or web address]. 11/12/2017 20:11:47 OBGyn Episode Ob Episode Information Episode Created Date Number of Fetuses Patient Bloodtype Patient rh Status Prepregnancy Weight lbs Domestic Partner Domestic Partner Phone Father Name Blending Plant Operator Status 05/28/20 17 1 A Negative 139 Fantasma- ex boyfrie nd limited involve ment CLOSED Fetus Data First Name Last Name Admitted to NICU Weight (g) Sex Living Outcome Pediatric Complications Fetus ID Race Codes Race Delivery Type Duke 3401.94 M Full Term Retractions ad low tone, suction. APGARS 7 and 9 6397 Problems Problem Notes Problem Name Start Date End Date Resolution Snomed Code Not e Low lying placenta SELFRESOLVED 33768973 7 FU done @ 28 wks, RESOLVED RhD negative 264808672 Rhogam given @ 28 weeks Primigravida 355719628 Plans F [place]. WB consent signed. Has doulas- [place] Doul[place]. Anxiety 26715658 stable Carrier of disorder 33528959 SMA carrier, FOB refused testing. Jalen Calculation Initial Jalen Date Initial Exam Date Initial Exam Provider Initial Ultrasound Date Last Menstrual Period Date Ultra Sound Weeks Gestation 09/17/2017 05/28/2017 01/30/2017 12/11/2016 7 Eighteen To Twenty Week Jalen Update Ultra Sound Date Fundal Height At Umbil Quickening Date Ultra Sound Latest Weeks Gestation Final Jalen Confirmed By Final Jalen Confirmed Date Final Jalen Date Ultra Sound Latest Days Gestation 0 05/28/2017 09/17/20 17 0 Pre-joon Flowsheet Flowsheet Date 05/28/2017 De Luna Score Blood Edema Fundus Height Fundus Units Glucose Ketones Leukocytes Nitrite Labor Signs Protein Cervic Dilation Cervic Effacement Cervic Station 24 cm Type Weight in lbs Pre/Post Dialysis Refused 154.450704045815 BP Diastolic BP Location Tested BP Systolic BP Type 70 108 sitting Fetus Heart Rate Present A 140s Present Fetus Movement A Yes Comments Unplanned with ex-boyfriend who is living in [place], limited involvement. Margaret is living with her father and has his support. Dating and FAS US WNL with exception to low-lying placenta. Did Progenity Innatal and carrier screening; is positive carrier for SMA, FOB unwilling to do testing, desires baby tested. Innatal screening negative. IOB labs WNL. First trimester lots of nausea with morning emesis, decreased appetite, fatigue. Feeling well now, difficulty sleeping. Discussed essential oils, positioning, baths, bedtime routine. It's a boy! Good FM. No VB, LOF, DENNEY. No concerns at this time. 3T labs obtained today, f/u US order placed (FOB would like to attend). Does not currently have thoughts of SI but is very fearful of PPD, has plan in place. Including cloth washer support, placenta encapsulation, and plans to start therapy. States she has intrusive thoughts that she is fearful she will have SI but does not currently. Resources given and plans to start therapy. [place] model of care, CNM rotation, electronic development technician phone number, normal changes in , what to expect, recommended weight gain, education topics (see education tab), warning signs, and when to call reviewed. RTO in 4 weeks or PRN. Warning signs and when to call reviewed. Desires Rhogam at next visit. Flowsheet Date 06/26/2017 De Luna Score Blood Edema Fundus Height Fundus Units Glucose Ketones Leukocytes Nitrite Labor Signs Protein Cervic Dilation Cervic Effacement Cervic Station 28 cm Wilkin Michelle Type Weight in lbs Pre/Post Dialysis Refused 159.275496234027 BP Diastolic BP Location Tested BP Systolic BP Type 65 110 sitting Fetus Heart Rate Present A 140s Present Fetus Movement A Yes Comments Pt here for routine OBV. Den ies VB, LOF or reg cntxns. Notes normal FM. Reports leaking from bilateral nipples. No concerns today. Has f/u ultrasound to check placenta on 07/07. Will be flying home to [place] tomorrow. Reviewed travel precautions. RhoGAM today. Wants to wait on Tdap until next visit. Undecided on place for , signed up for BC class but also considering epidural. Warning signs reviewed. RTC 2 weeks or prn. Flowsheet Date 07/11/2017 De Luna Score Blood Edema Fundus Height Fundus Units Glucose Ketones Leukocytes Nitrite Labor Signs Protein Cervic Dilation Cervic Effacement Cervic Station 32 cm none Type Weight in lbs Pre/Post Dialysis Refused 157.243146143231 BP Diastolic BP Location Tested BP Systolic BP Type 72 106 sitting Fetus Heart Rate Present A 140s Present Fetus Movement A Yes Comments Pt here for routine OBV. Den ies VB, LOF or reg cntxns. Notes normal FM. Reports severe heartburn; Tums are not helping. Had repeat u/s 07/07 to check placenta at [facility] in [place]. Report pending. Per patient placenta appears to have migrated. Desires Tdap, given today. Warning signs reviewed. RTC 2 weeks or prn. Flowsheet Date 07/16/2017 De Luna Score Blood Edema Fundus Height Fundus Units Glucose Ketones Leukocytes Nitrite Labor Signs Protein Cervic Dilation Cervic Effacement Cervic Station Type Weight in lbs Pre/Post Dialysis Refused BP Diastolic BP Location Tested BP Systolic BP Type Fetus Heart Rate Present Fetus Movement Comments Flowsheet Date 07/22/2017 De Luna Score Blood Edema Fundus Height Fundus Units Glucose Ketones Leukocytes Nitrite Labor Signs Protein Cervic Dilation Cervic Effacement Cervic Station Type Weight in lbs Pre/Post Dialysis Refused BP Diastolic BP Location Tested BP Systolic BP Type Fetus Heart Rate Present Fetus Movement Comments Client planning center . Client attended center preparation class today Flowsheet Date 07/25/2017 De Luna Score Blood Edema Fundus Height Fundus Units Glucose Ketones Leukocytes Nitrite Labor Signs Protein Cervic Dilation Cervic Effacement Cervic Station 32 cm none Type Weight in lbs Pre/Post Dialysis Refused 162.780931606143 BP Diastolic BP Location Tested BP Systolic BP Type 70 97 sitting Fetus Heart Rate Present A 140s Present Fetus Movement A Yes Comments Active FM (having a boy!). M ore tired this week, waking up often at 0400 & can't go back sleep. Reviewed sleep hygiene, no screens, epsom salt bath, protein intake. LBP intermittently, was going to chiropractor & recommended re-starting. Plans BC, took class this week. Has a cloth washer for labor/. Unsure if FOB will be at , otherwise [id number] or friend. Discussed flu shot, wants to research/consider, talk about next week. Reviewed FM monitoring, PTL, pre-E. RTC in 2 weeks. Flowsheet Date 08/07/2017 De Luna Score Blood Edema Fundus Height Fundus Units Glucose Ketones Leukocytes Nitrite Labor Signs Protein Cervic Dilation Cervic Effacement Cervic Station 34 cm none Type Weight in lbs Pre/Post Dialysis Refused 164.614920977712 BP Diastolic BP Location Tested BP Systolic BP Type 62 110 sitting Fetus Heart Rate Present A 140 Present Fetus Movement A Yes Comments 34 weeks gestation. Feels we ll and preparting for . Contractions occasionally. Reviewed [facility]. Center planned and has attended the class for prep. Knows when to call/how to reach and parameters. 30 minutes spent counseling patient, 5 minute exam. GBS testing reviewed. RTC1-2 weeks. Flowsheet Date 08/21/2017 De Luna Score Blood Edema Fundus Height Fundus Units Glucose Ketones Leukocytes Nitrite Labor Signs Protein Cervic Dilation Cervic Effacement Cervic Station 34.5 cm Cramping Type Weight in lbs Pre/Post Dialysis Refused 167.550205509944 BP Diastolic BP Location Tested BP Systolic BP Type 76 129 sitting Fetus Heart Rate Present A 130s Present Fetus Movement A Yes Comments Pt here for routine OBV. Den ies VB, LOF or reg cntxns. Notes normal FM. Reports bad cramping last night. Denies any urinary/vaginal s/sx. Is also not sleeping well. Reviewed potential relieving measures. Also is having frequent heartburn. Taking Zantac twice per day with good relief. GBS today. Toured hospitals but is still undecided. Given list of pediatric providers. Warning/labor reviewed. RTC 1 week or prn. RANI Flowsheet Date 08/26/2017 De Luna Score Blood Edema Fundus Height Fundus Units Glucose Ketones Leukocytes Nitrite Labor Signs Protein Cervic Dilation Cervic Effacement Cervic Station 35 cm Wilkin Michelle Type Weight in lbs Pre/Post Dialysis Refused 170.84729773875 BP Diastolic BP Location Tested BP Systolic BP Type 71 123 sitting Fetus Heart Rate Present A 130s Present Fetus Movement A Yes Comments Active FM. Feeling well over all. Tired. Heartburn improving, feels like baby has dropped. Occasional BH ctxs. Reviewed GBS negative result. Undecided about pediatric provider, researching. Plans [facility]. Plans [facility]. WB Consent signed, Hep C negative. Reviewed s/sx of labor, when to call, supervisor building maintenance #. RTC weekly. Flowsheet Date 09/04/2017 De Luna Score Blood Edema Fundus Height Fundus Units Glucose Ketones Leukocytes Nitrite Labor Signs Protein Cervic Dilation Cervic Effacement Cervic Station 38 cm none Type Weight in lbs Pre/Post Dialysis Refused 171.031660333231 BP Diastolic BP Location Tested BP Systolic BP Type 73 115 sitting Fetus Heart Rate Present A 130 Present Fetus Movement A Yes Comments 38 weeks. Feeling well, but ready to be done with . [facility] reviewed. Knows when to call and how to reach. Plans on having FOB present for at if able. He will be coming from [place]. Wants to wait to decide until she has felt a contx. 30 minute visit. 5 minute exam. RTC weekly. Flowsheet Date 09/09/2017 De Luna Score Blood Edema Fundus Height Fundus Units Glucose Ketones Leukocytes Nitrite Labor Signs Protein Cervic Dilation Cervic Effacement Cervic Station 37 cm Jonathan Michelle Type Weight in lbs Pre/Post Dialysis Refused 173.489921741161 BP Diastolic BP Location Tested BP Systolic BP Type 66 124 sitting Fetus Heart Rate Present A 140s Present Fetus Movement A Yes Comments Active FM (having a boy!). F eeling well overall. Tired. Went to chiropractor yesterday. Feeling intermittent cramps and BH ctxs. Drinking lots of water. Undecided about peds provider, but researching has reached out to other moms. Declines flu shot. Reviewed s/sx of labor, when to call, supervisor building maintenance #. RTC weekly. Flowsheet Date 09/17/2017 De Luna Score Blood Edema Fundus Height Fundus Units Glucose Ketones Leukocytes Nitrite Labor Signs Protein Cervic Dilation Cervic Effacement Cervic Station Type Weight in lbs Pre/Post Dialysis Refused 172.719829450155 BP Diastolic BP Location Tested BP Systolic BP Type 85 117 sitting Fetus Heart Rate Present A 140s Present Fetus Movement A Yes Comments Ctx which started last eveni ng around 11pm which started as period like cramps, are not 8-9 minutes apart, lasting 45-60 seconds, palpating moderate to firm. Able to talk through but breathing as well. Good FM. No bloody show or LOF. SVE 1/75/-1/midline/soft. Warning signs and when to call reviewed. To check in with CNM electronic development technician in 5-6 hours. Flowsheet Date 09/17/2017 De Luna Score Blood Edema Fundus Height Fundus Units Glucose Ketones Leukocytes Nitrite Labor Signs Protein Cervic Dilation Cervic Effacement Cervic Station Type Weight in lbs Pre/Post Dialysis Refused BP Diastolic BP Location Tested BP Systolic BP Type Fetus Heart Rate Present Fetus Movement A Yes Comments PC @1715: cont q6. Fruit Buying Grader not there yet, but they are intensifying. Loose stools now, not leaking fluid, runny discharge, no bleeding. FM++. Enjoys ball and rocking. showered, but not recently. Plans to stay home longer and try shower or tub again. Has been eating and drinking well. Flowsheet Date 10/29/2017 De Luna Score Blood Edema Fundus Height Fundus Units Glucose Ketones Leukocytes Nitrite Labor Signs Protein Cervic Dilation Cervic Effacement Cervic Station Type Weight in lbs Pre/Post Dialysis Refused BP Diastolic BP Location Tested BP Systolic BP Type 74 93 sitting Fetus Heart Rate Present Fetus Movement Comments Menstrual History Last Menstrual Date Menses Monthly On Bcp Conception Prior Menses Frequency Hcg Plus Date Menarche Onset Age 0212/11/2016 true false 25 14 Genetic Screening And Infection History Question Response Note Age Will Be 35 Years Or Older At Estimated Due D ate false Thalassemia; MCV < 80 false Neural Tube Defect (Meningomyelocele, Spina Bifi da, Or Anencephaly) false Family history of Congenital Heart Defect false Family history of Down Syndrome false Darren-Sachs false Sickle Cell Disease Or Trait false Hemophilia Or Other Bleeding Disorders false Family history of Muscular Dystrophy false Family history or Carrier of Cystic Fibrosis fal se Mitchell's Chorea false Family history of Intellectual disability/Autism false Inherited Genetic Or Chromosome Disease false Metabolic Disorder (eg, Type 1 Diabetes, PKU) fa lse Either parent with defect not already stat ed false Recurrent loss or history of stillbirt h (>20 weeks) false Medications (including Supplements, Vitamins, He rbs, OTC Drugs) true Tuberculosis (TB) exposure false Genital Herpesvirus false Rash Or Viral Illness while false History of STI or recent PID false Other Infection History false Plans and Education First Trimester Discussed Date Discussion Item Discussion Note Discuss ed By 05/28/2017 Activity-work,fitness,sex,posture [email or web address] 05/28/2017 Meets criteria for BC care a [email or web address] 05/28/2017 Prepreg BMI/Recommended Wt Gain [email or web address] 05/28/2017 Safety (medications, supplements, seat belts, teratogens, etc) [email or web address] 05/28/2017 Nutrition Counseling and Safety [email or web address] 05/28/2017 Problem List Completed max [email or web address] 05/28/2017 Genetic Screening [email or web address] 05/28/2017 Free from intimate partner violence [email or web address] 05/28/2017 Orientation to [facility] w: philosophy, model of care, how to reach us [email or web address] Second Trimester Discussed Date Discussion Item Discussion Note Discuss ed By 05/28/2017 Initial Labs Reviewed/Discussed [email or web address] 05/28/2017 Anatomy Scan Ordered/Reviewed [email or web address] 05/28/2017 24-28wk labs: GCT, H gb, avtar screen [email or web address] 06/26/2017 [facility] has signed up fo r BC prep class [email or web address] 05/28/2017 Genetic screening kevon novak received/reviewed [email or web address] 06/26/2017 Rhogam PRN given 06/26/17 [email or web address] 05/28/2017 Meets criteria for BC care a yuan 05/28/2017 Free from intimate p artner violence [email or web address] Third Trimester Discussed Date Discussion Item Discussion Note Discuss ed By 07/11/2017 Sibling preparation advised/resources provided n/a 08/21/2017 Center class completed [email or web address] 08/26/2017 Meets criteria for BC care think ing [facility] if goes to hospital [facility] 09/04/2017 Total weight gain pr ior to = 169 [email or web address] 07/11/2017 [email or web address] 09/05/2017 FMLA and/or disabili ty forms completed filed with [employer] [place] [id number] 08/07/2017 Discussion regarding plan [place] [id number] 07/11/2017 PTL/[facility] [email or web address] 07/11/2017 Free from intimate p artner violence 08/26/2017 Consent signed/Labs completed for JANNY/Waterbirth WB consent signed, Hep C neg marvin 08/07/2017 education (n ewborn screening, jaundice, SIDS/safe sleeping position, car seat) [place] [id number] 06/26/2017 Tdap offered given 07/11 07/25/2017 Benefits of cloth washer/referrals has daniel wong 09/05/2017 Peds provider entered above [facility] [place] [id number] 07/11/2017 Problem List Updated [facility] 0 08/26/2017 S/sx of labor, when to call, supervisor building maintenance electronic development technician #. marvin 08/07/2017 Pre-registered at [place] [id number] Delivery Information Delivery Date Delivery Type Labor Anesthesia Weeks Gestation Incision Type Labor Labor Length Hrs Delivered By Post Complications Tubal Sterilization Discharge Date Comments 7 Sponta neous Regional-Ep idural 40.1 20 AMJ None Planned and delivered at [facility]. EBL 400 mL, pit given. Pit started at 2 mU after 1 hour pushing and ctx spaced. Discharge Information Feeding Method Contraceptive Method Maternal HG B and HCT Levels
--- OUTSIDE RECORDS SUMMARY | 2025-01-18 01:38 | XMS_ITS | Data Portability ---
Author Organization [facility] [employer] [facility] Address [address] [place] [address] Assessment No assessment recorded. Plan of Treatment Reminders Order Date Submit Date Provider Last Modified By Organization Details Last Modified Time Details Appointments None recorded. Lab pap, LB + CT/NG + HR HPV [address] [facility], [address] [place] [address] [place], [address], 09:04:26 culture, urine [address] [facility], [address] [place] [address] [place], [address], 09:04:26 Referral None recorded. Procedures None recorded. Surgeries None recorded. Imaging None recorded. Medication Orders Jennifer 0.35 mg tablet 021 [facility] #[id number], [address], [place], [phone], 10:26:17 Keflex 750 mg capsule [facility] #[id number], [address], [place], [phone], 09:44:54 Patient TargetsNo targets recorded. Patient InstructionsNo instructions recorded. Reason for Referral None Reported. Results Created Date Observation Date Name Description Value Unit Range Abnormal Flag Note LastModifiedBy Organization Detail LastModifiedTime 07/13/20 21 07/13/2021 URINA LYSIS W/CUL T IF INDIC ATED color,urine YELLOW Not Available [address] [place], [address], 07/13/2021 16:35:35 07/13/20 21 07/13/2021 URINA LYSIS W/CUL T IF INDIC ATED clarity,urin e SL CLOUDY Not Available [address] [place], [address], 07/13/2021 16:35:35 07/13/20 21 07/13/2021 URINA LYSIS W/CUL T IF INDIC ATED pH,urine 5.5 5.0-8. 0 Not Available [address] [place], [address], 07/13/2021 16:35:35 07/13/20 21 07/13/2021 URINA LYSIS W/CUL T IF INDIC ATED specific gravity,urin e 1.025 1.003- 1.030 Not Available [address] [place], [address], 07/13/2021 16:35:35 07/13/20 21 07/13/2021 URINA LYSIS W/CUL T IF INDIC ATED protein,urin e (UA) Negati ve (quali fier value) negati ve Not Available [address] [place], [address], 07/13/2021 16:35:35 07/13/20 21 07/13/2021 URINA LYSIS W/CUL T IF INDIC ATED glucose, urine (UA) NEGATI VE negati ve Not Available [address] [place], [address], 07/13/2021 16:35:35 07/13/20 21 07/13/2021 URINA LYSIS W/CUL T IF INDIC ATED ketones,urin e Negati ve (quali fier value) negati ve Not Available [address] [place], [address], 07/13/2021 16:35:35 07/13/20 21 07/13/2021 URINA LYSIS W/CUL T IF INDIC ATED occult blood,urine 1+ negati ve high Not Available [address] [place], [address], 07/13/2021 16:35:35 07/13/20 21 07/13/2021 URINA LYSIS W/CUL T IF INDIC ATED nitrate,urin e Negati ve (quali fier value) negati ve Not Available [address] [place], [address], 07/13/2021 16:35:35 07/13/20 21 07/13/2021 URINA LYSIS W/CUL T IF INDIC ATED bilirubin,ur ine Negati ve (quali fier value) negati ve Not Available [address] [place], [address], 07/13/2021 16:35:35 07/13/20 21 07/13/2021 URINA LYSIS W/CUL T IF INDIC ATED urobilinogen ,urine 0.2 0.2-1. 0 Not Available [address] [place], [address], 07/13/2021 16:35:35 07/13/20 21 07/13/2021 URINA LYSIS W/CUL T IF INDIC ATED leukocyte esterase ,urine Negati ve (quali fier value) negati ve Not Available [place] [address] [place], [address], 07/13/2021 16:35:35 07/13/20 21 07/13/2021 URINA LYSIS W/CUL T IF INDIC ATED urine microscopic yes/no YES Not Available [facility] [address] [place], [address], 07/13/2021 16:35:35 07/13/20 21 07/13/2021 URINA LYSIS W/CUL T IF INDIC ATED culture if indicated-ur ine CULT NOT INDICA RONAK SPECI MEN DAVID SIS DOES NOT MEET CRITE JENNIFER FOR CULTU RE. C/S NOT DONE. Not Available [facility] [address] [place] [address] [place], [address], 07/13/2021 16:35:35 07/13/20 21 07/13/2021 URINA LYSIS W/CUL T IF INDIC ATED performing lab see note ML - [facility] Not Available [facility] [address] [place] [address] [place], [address], 07/13/2021 16:35:35 07/13/20 21 07/13/2021 URINE MICRO SCOPI C RBC,urine 0-2 0-2 Not Available [facility] [address] [place], [address], 07/13/2021 16:35:36 07/13/20 21 07/13/2021 URINE MICRO SCOPI C WBC,urine 0-2 0-2 Not Available [facility] [address] [place] [address] [place], [address], 07/13/2021 16:35:36 07/13/20 21 07/13/2021 URINE MICRO SCOPI C squamous epithelial cell,ur 3-15 0-2 high Not Available [facility] [address] [place], [address], 07/13/2021 16:35:36 07/13/20 21 07/13/2021 URINE MICRO SCOPI C bacteria,uri ne 0-25 0-25 Not Available [facility] [address] [place], [address], 07/13/2021 16:35:36 07/13/2007/13/2021 URINE MICRO SCOPI C performing lab see note ML - [facility] Not Available [facility] [address] [place], [place], [address], 07/13/2021 16:35:36 Result Notes None recorded. Procedures Surgical History Date Name Laterality Status Provider Name and Address Organization Details Recorded Time Date of Last Pap Smear completed Meena Nault [place] - [facility] 07/13/2021 10:24:22 nasal septoplasty completed Meena Nault [place] - [facility] 07/13/2021 10:29:30 procedure on wrist completed Meena Nault [place] - [facility] 07/13/2021 10:29:41 Imaging Results None recorded. Procedure Notes None recorded. Medical Equipment None Reported. Allergies Allergen ID Allergen Name Allergen Category Reaction Reaction Severity Criticality Documentation Date Start Date Code Code System Note Provider Name and Address Organization Details Recorded Time 46424 Macrobid medicatio n Not available Not available Not available 07/13/2021 69209 1 RxNorm Meena Nault null, [place] - [facility] 10:27:20 96857 Bactrim medicatio n Not available Not available Not available 08/06/2021 18048 9 RxNorm Ellen Noskey null, [place] - [facility] 09:45:02 Medications Name Sig Start Date Stop Date Status Note LastModified by Organization Details LastModified Time Zoloft 50 mg tablet Take 1 tablet every day by oral route. active Not Available Not Available No t Available Keflex 750 mg capsule Take 1 capsule as needed by oral route. 021 2020 completed Not Available Not Available Not Available Vitals Date Recorded Body height Body mass index (BMI) Body weight Systolic blood pressure Diastolic blood pressure Provider Name and Address Organization Details Last Updated DateTime 07/13/2021 165.1 cm 12.1 kg/m2 84768.24 g 100 mm[Hg] 70 mm[Hg] Meena Nault [place] - [facility] 10:31:21 Date Recorded Body height Body mass index (BMI) Body weight Body temperature Heart rate Oxygen saturation Oxygen saturation in Arterial blood by Pulse oximetry Provider Name and Address Organization Details Last Updated DateTime 1 165.1 cm 28.3 kg/m2 30508.7 g 97.8 [degF] 74 /min 98 % 98 % Ellen Meyersramiro [facility] 1 09:45:50 Social History None recorded. Functional Status None recorded. Mental Status None recorded. Family History Relationship Description Onset Age of this Age Resolved Age Notes LastModified by Organization Details LastModified Time Father Malignant neoplastic disease testic ular [email or web address] Not available 07/13/2021 10:28:31 Maternal Grandfather Leukemia [email or web address] Not available 0 07/13/2021 10:28:42 Paternal Grandmother Aneurysm [email or web address] Not available 0 07/13/2021 10:28:59 Medical History No medical history recorded. Gynecological History Statement/Question Response Date of Last Pap Smear 04/15/2018 Obstetrics History GPAL:G 1 P 0 0 0 1 Type Value Living 1 Total 1 Past Encounters Encounter ID Performer Location Encounter Start Date Encounter Closed Date Diagnosis/Indication Diagnosis SNOMED-CT Code Diagnosis ICD10 Code Diagnosis Note [id number] Jono Walker MD [address] [place] [address] 07/13/2021 10:19:23 07/13/2021 10:58:33 Chronic urinary tract infection 759863373 N39.0 Just got done with treatment for a UTI, was given Ceftin. Had some blood in urine today, will send for a urine cx to make sure infection cleared. Her trigger for UTIs are intercours e, she has had 3 UTIS in the last 3 months. She has taken prophylact ic antibiotic in the past with intercours e and would like to get back on that regimen. Antibiotic sent in. Approx 35 minutes was spent in counseling and talking about issues with UTI, Pelvic pain, ovulation pain, and control. Uses oral contraception [id number] Z30.41 Having issues with ovulation pain. This is a monthly issue, but last month she ended up in ER with severe pain, Hem cyst was noted on sono. She does have a h/o migraines with aura, has been on progestero ne control in the past. DId speak to her about ovulation control with control, and she is willing to try it. R//B/A's discussed Gynecologi c examination [id number] Z01.419 Normal exam, no cyst noted on bimanual. Normal breast exam. No Nipple discharge. [id number] [facility] [address] [place] [address] [place] [address] 08/06/2021 08:59:35 08/06/2021 10:20:38 Visual disturbance 02225742 H53.9 The patient is experienci ng symptoms that are different than her typical migraine auras. Usually the aura starts in the right periphery and moves toward the center with the red image becoming larger and then moving back out to the periphery. Today she is on day 4 of right peripheral vision changes that are not improving despite medication s. She states that she feels scared and wasn't sure where she should be seen. Due to the abnormal nature of this particular headache, I feel that further evaluation in the ED is warranted. This was explained to the patient and she is in agreement and verbalizes understand ing. Report was called to Radha in the ED and the patient was brought via wheelchair by staff. Health Concerns Section Related Observation LastModified by Organization Detai ls LastModified Time None Recorded Concern Status LastModified by Organization Details LastModified Time None Recorded Advance Directives Directive None Recorded Payers Encounter Date Sequence Insurance Name Policy Number Policy Christiansen Covered Member ID Christiansen Member ID Guarantor Name 07/13/2021 1 [place] [id number] A Margaret Tavon [id number] Margaret Tavon 08/06/2021 1 [place] [id number] A Margaret Tavon [id number] Margaret Tavon Notes Date Note Type Note Provider Name and Address Organization Details Recorded Time 07/13/2021 text/html ER F/U for Hem cyst, UTI, ovulation pain, annual due. Jono Walker MD [address] [place], [address], [facility] 07/13/2021 11:07:21 08/06/2021 text/html Margaret presents to the clinic with complaints of a headache and peripheral vision changes since . It started out as her typical migraine with aura on , she took a nap and felt better initially. However, she developed another aura shortly after she woke up. Her headache feels like a band wrapped around her head, which is unlike her typical migraines. She has taken Advil with no relief, which is unusual. The peripheral vision changes have not subsided and she is scared. HUMAIRA AYALA, PHYSICIAN/ALLERGY/IMMUNOLOGY [address] [place], [address], [facility] 08/06/2021 10:24:29 OBGyn Episode No OBEpisode recorded.
--- OUTSIDE RECORDS SUMMARY | 2025-01-18 01:39 | XMS_ITS ---
Author Organization [facility] Address [address] [place] [address] Care Team Providers Care Imaging Services Director Name Role Phone None, No PCP Primary Care Provider Unavailabl Lee Ann Vasques [phone] REASON FOR VISIT [facility] Encounters Encounter Location Date Provider Diagnosis [facility] [address] [place] [address] 10/26/2024 Lee Ann Cho Plan Of Treatment No Information Progress Notes * Meghna BURRELLB:1985 (38 yo F)Acc No.[id number]:10/26/2024 Patient: Simone GARCIAPHYLICIAMerlenea :1985 A ge:38 Y S ex:Female [place]:[address] [place], [address] * true * Date: Generated for Wellingtoni mago/Henry/eTransmitting on: 0 01/18/2025 01:38 AM CDT
[2025-01-18 01:46] VITALS: BP 138/96; PULSE 114; RESP 16; TEMP 37.6; O2SAT 97; BMI 31.5
[2025-01-18 02:00] LABS: Appearance Urine Clear (Clear); Bilirubin Urine Negative (Negative); Blood Urine 2+ (Negative); Color Urine Yellow (Yellow); Glucose Urine Negative (Negative); Ketones Urine Negative (Negative); Leukocyte Esterase Urine Negative (Negative); Nitrite Urine Negative (Negative); Protein Urine Negative (Negative); Specific Gravity Urine 1.015 (1.000-1.030); Urobilinogen Urine 0.2 (0.2-1.0)
--- NOTE | 2025-01-18 02:05 | ED_ITS ---
HPI - General Adult General Chief complaint: Fever Stated complaint: 1wk pp, flu like symptoms Time Seen by Provider: 01/18/25 01:57 History of Present Illness HPI narrative: 1 week post vaginal delivery, started having fever 100.2 at home and chills with headache (ocular migraine with vision flashes) . today n/v. states she is constipated, did home enema and had 2 BM td . takes ibu 600 AM and PM. some pain with urination. denies mastitis symptoms. delivery went well, did develop HTN during. 39-year-old woman presenting to the emergency department 1 week following vaginal delivery. Delivery was augmented with Pitocin and AROM for postdates at 41 weeks. First degree perineal tear; repaired. Some gestational hypertension as well. Reports GBS negative Lochia continues to lighten. More walking today and so then started to see some blood and so rested for the later portion of the day. No increased abdominal pain; as expected degree of discomfort. Today though started to feel chilled and hot alternating. Temperature measured up to 100.2. A history of migraines. Then feeling this pressure around her eyes, forehead. Soreness in her neck. Some flashes in her vision which isn't historically unusual and reports history of floaters. Nausea. Related Data Home Medications ?Medication ?Instructions ?Recorded ?Confirmed sertraline 50 mg tablet 100 mg PO QDAY 01/20/25 01/20/25 Previous Rx's ?Medication ?Instructions ?Recorded acetaminophen 500 mg tablet 1,000 mg (2 x 500 mg) PO Q6H PRN 01/12/25 #0 tabs docusate sodium 100 mg capsule 100 mg PO DAILY #90 caps 01/12/25 ibuprofen 600 mg tablet 600 mg PO Q6H PRN #60 tabs 01/12/25 ondansetron 4 mg disintegrating 4 mg PO Q4-6H PRN nausea/vomiting 01/18/25 tablet #15 tabs nifedipine 30 mg tablet,extended 30 mg PO QDAY #60 tabs 01/20/25 release Allergies Allergy/AdvReac Type Severity Reaction Status Date / Time nitrofurantoin (From Allergy Mild Hives Verified 01/20/25 10:47 Macrobid) sulfamethoxazole (From Allergy Mild Hives Verified 01/20/25 10:47 Bactrim) trimethoprim (From Bactrim) Allergy Mild Hives Verified 01/20/25 10:47 Review of Systems Status of ROS: Reports: 6 or more systems reviewed and unremarkable except as noted in History and below PFSH PFSH Medical History Elevated C-reactive protein (CRP) ?R79.82 - Elevated C-reactive protein (CRP) (ICD-10) Migraines ?G43.909 - Migraine, unspecified, not intractable, without status migrainosus (ICD-10) Anemia during ?O99.019 - Anemia complicating , unspecified trimester (ICD-10) Recurrent urinary tract infection ?N39.0 - Urinary tract infection, site not specified (ICD-10) Obesity (BMI 30-39.9) ?E66.9 - Obesity, unspecified (ICD-10) Anxiety and depression ?F41.9 - Anxiety disorder, unspecified (ICD-10) ?F32.A - Depression, unspecified (ICD-10) Diarrhea ?R19.7 - Diarrhea, unspecified (ICD-10) Surgical History H/O wrist surgery ?Z98.890 - Other specified postprocedural states (ICD-10) History of nasal septoplasty ?Z98.890 - Other specified postprocedural states (ICD-10) Family History Grandfather High blood pressure Diabetes Maternal Grandfather Cancer Father Testicular cancer Social History Narrative: SOCIAL Education: Bachelors degree 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 [email or web address] Partner:[employer] Lives with: Nils, Duke (son) Pets: 2 dogs, 1 cat Abuse: Denies past/present Special Diet: Denies Ok with a blood transfusion: yes Culture or pentecostalism beliefs: denies RISK FACTORS Exercise Times/wk: Not routinely Depression/Anxiety: Yes, Anxiety with some depression Seat Belt Use: Routinely Smoking: Denies presentStopped in 2021 Alcohol/day: Denies while ; Rare prior (socially) Caffeine: 1 pop per day maybe Drug Use: Denies past/present MRSA: Denies What is your current living situation?: I presently have a place to live Problems where you live: no known problems In the past 12 months, utilities in danger of being shut off: no In past 12 months, lack of transportation kept you from medical appts, meetings, work, or getting things needed for daily living: no How hard is it for you to pay for the very basics like food, housing, medical care, and heating: not very hard In the past 12 mos, have been you worried that your food would run out before you had money to buy more?: never true In the past 12 mos, the food you bought just didn't last and you didn't have money to buy more?: never true Smoking Status: Never smoker Do you use any of these nicotine containing products: None How often do you have a drink containing alcohol: never How often do you have six or more drinks on one occasion: Never AUDIT-C Alcohol total score: 0 Non-prescribed substance use: denies use How often does anyone, including family, friends and others, physically hurt you : never How often does anyone, including family, friends and others, insult or talk down to you: never How often does anyone, including family, friends and others, threaten you with harm: never How often does anyone, including family, friends and others, scream or curse at you: never Exam Narrative: Exam Narrative: Pleasant. Seems uncomfortable. Emesis bag at hand. Demonstrating some photophobia. Cranial nerves 2-12 are intact. Pupils are 3 mm and equal and briskly reactive. Neck is supple though sore in the left greater than right trapezial and paracervical musculature. Mild discomfort in the suprapubic area. Abdomen otherwise nontender. No unusual swellings. Extremities are well perfused without edema. Skin is warm and dry without apparent rash. Const: Vital Signs, click to edit/add: Vital Signs - 24 hr 01/18/25 01:46 01/18/25 02:48 01/18/25 03:42 Temperature 99.6 F Pulse Rate [Pulse Oximeter] 114 H Respiratory Rate 16 18 Blood Pressure [Ri ght Upper Arm] 138/96 H 125/86 Pulse Oximetry 97 Oxygen Delivery Me thod Room Air Documenting provider has reviewed patient's vital signs: yes Course Vital Signs Vital signs: Initial Vital Signs Temperature 99.6 F 01/18/25 01:46 Temperature Source Temporal Artery Scan 01/18/25 01:46 Pulse Rate 114 H 01/18/25 01:46 Respiratory Rate 16 01/18/25 01:46 Blood Pressure 138/96 H 01/18/25 01:46 Blood Pressure Mean 110 H 01/18/25 01:46 Blood Pressure Position Sitting 01/18/25 01:46 Pulse Oximetry 97 01/18/25 01:46 Oxygen Delivery Method Room Air 01/18/25 01:46 Vital Signs Temperature 99.6 F 01/18/25 01:46 Pulse Rate 114 H 01/18/25 01:46 Respiratory Rate 16 01/18/25 01:46 Blood Pressure 138/96 H 01/18/25 01:46 Pulse Oximetry 97 01/18/25 01:46 Oxygen Delivery Method Room Air 01/18/25 01:46 Temperature 99.6 F 01/18/25 01:46 Pulse Rate 114 H 01/18/25 01:46 Respiratory Rate 18 01/18/25 02:48 Blood Pressure 125/86 01/18/25 03:42 Pulse Oximetry 97 01/18/25 01:46 Oxygen Delivery Method Room Air 01/18/25 01:46 Medications Administered Medications: Discontinued Medications Generic Name Dose Route Start Last Admin Trade Name Freq PRN Reason Stop Dose Admin Sodium Chloride 1,000 mls @ 1,000 mls/hr 01/18/25 02:14 01/18/25 04:14 0.9 % Sodium Chloride 1000 Ml IV 01/18/25 03:13 Infused .Q1H ONE Infusion Ketorolac Tromethamine 30 mg 01/18/25 02:14 01/18/25 02:39 Ketorolac 30 Mg/Ml Inj IVP 01/18/25 02:15 30 mg ONCE ONE Administration Ondansetron HCl 4 mg 01/18/25 02:14 01/18/25 02:28 Ondansetron 2 Mg/Ml Inj IVP 01/18/25 02:15 4 mg ONCE ONE Administration Medical Decision Making MDM Narrative Medical decision making narrative: Did spend some time reviewing record. Blood pressure is not terribly elevated. She is not demonstrating cephalopathy otherwise. Underlying history of migraines which I think I would offer treatment and then reassess need for further cares are evaluation. And certainly gestational hypertension/preeclampsia it does remain in differential. With the periocular component it is possible that atomized lidocaine would be beneficial though also with some posterior element her headache as well. We decided to proceed with more typical management of headache. Further workup pending improvement. Abdominal exam would not suggest endometritis. Does not have symptoms of mastitis. Screen for COVID and influenza Given IV fluids, ketorolac and Zofran. I think singular dosing of ketorolac should be safe in breast-feeding. On reassessment headache is improved though not gone completely. Feels well enough to go home. Has been nursing during time in the emergency department. Stable, improved blood pressures here in the emergency department. Inconsistent with preeclampsia/eclampsia. See patient discharge plan for further discussion Continue monitor blood pressure after a period of rest. Report repeated blood pressure measurements of 140/90 or more. Be seen for increasing and uncontrolled headache, increasing abdominal pain particularly associated with fever, evidence of mastitis. Sending in Zofran to pharmacy for you. Medical Records Medical records reviewed: Yes I reviewed the patient's medical records Lab Data Lab results reviewed: Yes I reviewed the patient's lab results Labs: Lab Results 01/18/25 01/18/25 Range/Units 01:45 01:48 Urine Color Yellow (Yellow) Urine Appearance Clear (Clear) Urine pH 6.0 (5.0-8.5) Ur Specific [place] 1.015 (1.000-1.030) Urine Protein Negative (Negative) Urine Glucose (UA) Negative (Negative) Urine Ketones Negative (Negative) Urine Blood 2+ A (Negative) Urine Nitrite Negative (Negative) Urine Bilirubin Negative (Negative) Urine Urobilinogen 0.2 (0.2-1.0) Ur Leukocyte Esterase Negative (Negative) Urine RBC 0-2 (0-2) Urine WBC 0-2 (0-5) Ur Squamous Epith Cells Few (None-Few) Urine Bacteria Few A (None) Urine Mucus Few A (None) SARS-CoV-2 (PCR) Negative SARS-CoV-2 (Negative) Influenza Type A (PCR) Negative PCR FLU A (Negative) Influenza Type B (PCR) Negative PCR FLU B (Negative) Discharge Plan Discharge Clinical Impression: Headache Patient Disposition: Home w/ Parent or Adult Condition: Improved Additional Instructions: Continue monitor blood pressure after a period of rest. Report repeated blood pressure measurements of 140/90 or more. Be seen for increasing and uncontrolled headache, increasing abdominal pain particularly associated with fever, evidence of mastitis. Sending in Zofran to pharmacy for you. Prescriptions: New ondansetron 4 mg tablet,disintegrating 4 mg PO Q4-6H PRN (Reason: nausea/vomiting) Qty: 15 0RF No Action sertraline 50 mg tablet 100 mg PO QDAY nifedipine 30 mg tablet extended release 30 mg PO QDAY Qty: 60 1RF acetaminophen 500 mg Tablet 1,000 mg PO Q6H PRNQty: 0 0RF docusate sodium 100 mg Capsule 100 mg PO DAILY Qty: 90 0RF ibuprofen 600 mg Tablet 600 mg PO Q6H PRNQty: 60 0RF Follow Up/Referrals: Sania Blum DO [Primary Care Provider] - Stand Alone Forms: MyHealth Info Instructions
[2025-01-18 02:13] LABS: Bacteria Urine Few; Mucus Urine Few; RBC Urine 0-2 (0-2); Squamous Epithelial Cell Urine Few (None-Few); WBC Urine 0-2 (0-5)
--- OUTSIDE RECORDS SUMMARY | 2025-01-18 02:20 | XMS_ITS | Clinical Summary ---
Author Organization [facility] Address [address] [place] [id number] Care Team Providers Care Vending Supervisor Name Role Phone [facility] Primary Care Provider Unavailabl e Allergies Active [...] Department Care Team Description 01/11/2025 Orders Only [facility] Scanner 1 scan: (1-Ord) [place], [place] PROCEDURE VAG DELIVERY, 01/11/2025 from Last 3 Months Immunizations Immunization Administration Dates Next Due COVID-19 vaccine ([employer] 30mcg/0.3mL) PF, MDV 02/19/2021,01/29/2021 DT (Age [...] Comments Blood Pressure 114/72 09/06/2024 2:23 PM COUNTY PROGRAM TECHNICIAN Pulse 90 09/06/2024 2:23 PM COUNTY PROGRAM TECHNICIAN Temperature 36.5 C (97.7 F) 03/21/2024 1:05 PM CDT Respiratory Rate 14 03/21/2024 1:05 PM CDT Oxygen Saturation 98% 03/21/2024 1:05 PM CDT Inhaled Oxygen Concentration - - Weight 91.2 kg (201 lb) 09/06/2024 2:23 PM COUNTY PROGRAM TECHNICIAN Height 168.9 cm (5' 6.5) 09/06/2024 2:23 PM COUNTY PROGRAM TECHNICIAN Body Mass Index 31.96 09/06/2024 2:23 PM COUNTY PROGRAM TECHNICIAN Plan of Treatment Health Maintenance Due Date Last Done Comments HIV for age 15-65 2002 Hepatitis C screening for ag e 18-79 2005 Pneumococcal series for age 6-49 (1 of 2 - PCV) 2006 COVID-19 vaccine series ( - season) 2024 02/19/2021, 01/29/2021 Influenza Vaccine (#1) 2024 , 08/16/2020, 08/16/2019, Additional history exists Pap test for age 21-65 07/13/2024 ([facility]) Depression screening for age 12+ 12/09/2024 12/09/2023, [...] Last 3 Months Insurance BLUE CROSS OF NON-AR-ITS Care Teams Vending Supervisor Relationship Specialty Start Date End Date [facility] [place] PCP - General 02/12/23
--- OUTSIDE RECORDS SUMMARY | 2025-01-18 02:21 | XMS_ITS | Clinical Summary ---
Author Organization [facility] Address [address] [place] [address] Care Team Providers Care [employer] Repairer Name Role Phone Meera Avery MD Unavailable Kiya Villar PA-C Unavailable [phone] Kiya Villar PA-C Unavailable [phone] Sania Blum DO Primary Care Provider [phone] Allergies Active Allergy Reactions Criticality Noted Date [...] LAB - BLOOD ORDERABLES Final Result LABORATORY [facility] [address] Lab (1st floor, no room number) [place] [address] * HIV Antigen Antibody Combo (02/01/2017) Pathologist [facility] HIV Antigen Antibody Combo Negative Blood specimen (specimen) us Patient Reported LAB - BLOOD ORDERABLES Final Re sult from Last 3 Months or Most Recently Relevant to Health Maintenance Insurance BC OUT OF [facility] [place] [address] BCBS OUT OF STATE Care Teams [employer] Repairer Relationship Specialty [place] [address] [address] [place], [place] [id number] PCP - General Family Medicine 05/21/24 [place] [address] [address] [place], [place] [id number] Physician director corporate sales 08/20/23 Kiya Villar PA-C [phone] [place] [id number] Physician Personal Fitness Manager Urology 08/20/23 Kiya Villar PA-C [phone] [place] [id number] Assigned OBGYN Provider 09/06/23
--- OUTSIDE RECORDS SUMMARY | 2025-01-18 02:21 | XMS_ITS | Patient Health Record ---
Author Organization [facility] Address [address] [place] [address] Care Team Providers Care Speech Pathology Teacher Name Role Phone None, No PCP Primary Care Provider Lee Ann Chavez Unavailable [phone] Meera Avery Unavailable [phone] Allergies Allergen (clinical drug ingredient) Drug/Non Drug Allergy documented on EMR Reaction Allergy Type Onset Date Status sulfamethoxazole / trimethoprim Bactrim Unknown Drug Allergy Active nitrofurantoin, macrocrystals / nitrofurantoin, monohydrate Macrobid Unknown Drug Allergy Active Results Component Value Reference Range Notes CBC (INCLUDES DIFF/PLT) Reviewed date:08/23/2024 12:16:00 PM Interpretation: Performing Lab:[facility], [facility] [address] [facility] [place] Walker Mary Notes/Report: WHITE BLOOD CELL COUNT 8.6 3.8-10.8 Thousand/uL RED BLOOD CELL COUNT 3.94 3.80-5.10 Million/uL [...] MPV 9.7 7.5-12.5 fL ABSOLUTE NEUTROPHILS 6424 [phone] cells/uL ABSOLUTE LYMPHOCYTES 4753 068-7036 cells/uL ABSOLUTE MONOCYTES 611 200-950 cells/uL ABSOLUTE EOSINOPHILS 103 15-500 cells/uL ABSOLUTE BASOPHILS 17 0-200 cells/uL NEUTROPHILS 74.7 LYMPHOCYTES 16.8 MONOCYTES 7.1 EOSINOPHILS 1.2 BASOPHILS 0.2 MATERNAL SERUM AFP Reviewed date:08/02/2024 05:47:00 PM Interpretation:Normal Performing Lab:[facility], [email or web address] [facility], [facility] Hospital[facility]cqs[facility]Q[address] Walker Jacquelyn Mary Notes/Report: INTERPRETATION: Screen negative for open NTD. Risk for ONTD <1 IN 5000 AFP, Serum 31.4 AFP MoM 0.79 COMMENTS: This patient's ALLAN (estimated date of delivery) was used to calculate the gestational age. The AFP test result indicates that this patient is screen negative for open NTD. It should be noted that normal test results can never guarantee the of a normal baby and that 2-3% of newborns have some type of physical or mental defect, many of which are undetectable through any known diagnostic technique. COMMENT This is a screening test, not a diagnostic test. This risk assessment report is based in part on demographic data provided by the ordering physician. Please notify the laboratory promptly if any data are incorrect. For assistance with recalculations, please call your local [facility] laboratory. For assistance with interpretation of these results, please contact your Local [facility] genetic counselor or call [phone] Interpretive Cutoffs Screen Positive for Open NTD: > or = 2.50 adjusted MOM > or = 1.90 adjusted MOM for insulin-dependent diabetics > or = 4.00 adjusted MOM for twins > or = 3.50 adjusted MOM for twins insulin-dependent diabetics > or = 4.50 adjusted MOM for triplets For additional information, please refer to http://education.Wooboard.com/faq/FAQ74v 1 (This link is being provided for informational/ educational purposes only.) Calc'd Gestational Age 18.6 Maternal Weight 200 Est'd Date of Delivery 12/26/2024 ALLAN Determined by LMP Mother's Ethnic Origin Number of Fetuses 1 Insulin Depend Diabetic NO Repeat Specimen NO Hx Of Neural Tube Defects NO Prev Down Synd NO Donor Egg NO Donor Age: Egg Retrieval NOT GIVEN QNATAL(TM) ADVANCED Reviewed date:07/05/2024 03:58:37 PM Interpretation: Performing Lab:[facility], [facility],[address], [place] ItjkmldeoqRW[address] Nyasia Villa MD,PhD,[place] Notes/Report: NUMBER OF FETUSES? 1 ADVANCED MATERNAL AGE? YES ABNORMAL MIRANDA? NOT GIVEN ABNORMAL US? NOT GIVEN PERSONAL/FAM HISTORY? NOT GIVEN INTERPRETATION SEE NOTE This specimen showed an expected representation of chromosome 21, 18, and 13 material. See Limitations below. TRISOMY 21 (T21) Negative TRISOMY 18 (T18) Negative TRISOMY 13 (T13) Negative Y CHROMOSOME Detected Y CHR. INTERPRETATION SEE NOTE Consis tent with a male fetus. SEX CHROMOSOME No aneuploidy SEX CHROMOSOME INTERP SEE NOTE No apparent abnormality was detected. See Limitations below. MICRODELETION Not detected MICRODELETION INTERP SEE NOTE No apparent abnormality was detected. See Limitations below. GESTATIONAL AGE(IN WEEKS) 12 GESTATIONAL AGE (IN DAYS) 4 FRACTION 16.80% LABORATORY COMMENTS SEE NOTE Laboratory testing supervised and results monitored by Gabriel DeL a Paz, Ph.D., [facility], [facility], [facility]. LIMITATIONS SEE NOTE QNatal(R) Advanced is a cell-free DNA screening test that screens for increased risk of certain chromosomal abnormalities that may cause defects, including Trisomy 21 (Down syndrome), Trisomy 18, Trisomy 13, and certain sex chromosome abnormalities (i.e., 45,X, 47,XXY, 47,XXX, and 47,XYY), as well as sex. In addition, if selected as an option, QNatal(R) Advanced can screen for certain microdeletions (i.e., 22q, 5p, 1p36, 15q, 11q, 8q, and 4p) that may cause defects. This test does not assess the risk of abnormalities such as neural tube defects or ventral wall defects and should not be considered in isolation from other clinical findings and laboratory test results. QNatal(R) Advanced has been validated in diaz pregnancies for the trisomies and sex chromosome abnormalities listed above, as well as for microdeletions, and for the determination of sex. Sex chromosome aneuploidy analysis is only performed in diaz pregnancies. This screening test has also been validated in twin pregnancies for the trisomies listed above and for microdeletions, but not for the sex chromosome abnormalities due to limited data. This screening test has not been validated in higher order pregnancies (more than two) because limited data is available. Sex chromosomal aneuploidy results issued for pregnancies confirmed to be of multiple gestations are not valid and should be disregarded. Microdeletion screening is limited to the specified microdeletion regions (see Methodology). The Y chromosome is analyzed for the determination of sex. The sensitivity and specificity of sex determination analysis may be less than that of the Trisomy 21, 18, and 13 analysis and this determination can be confounded by vanishing twin syndrome in pregnancies that were originally multiple gestation pregnancies. It should be noted that QNatal(R) Advanced is a quantitative analysis of maternal and placental cfDNA. As a result, the accuracy of screening results may be affected by the presence of chromosome abnormalities or microdeletions that are maternal or confined placental in origin. SPECIFICATIONS SEE NOTE Sensitivity Specificity T21 >99.9% >99.9% T18 >99.9% >99.9% T13 >99.9% >99.9% Accuracy Y >99.9% Performance of the QNatal Advanced laboratory-developed test (LDT) has been determined based on internal analytical assessment. METHODOLOGY SEE NOTE Circulating cell-free (cf) DNA was isolated from plasma followed by detection on a massively parallel sequencing platform. Bioinformatic analysis was performed to determine the representation of chromosomes 21, 18, 13, X and Y in circulating cell-free DNA. The representation of sequences from the critical regions involved in 1p36 microdeletion syndrome (1p36), Collins-Hirschhorn syndrome (4p), Cri-du-chat syndrome (5p), Dallin-Giedion syndrome (8q), Uri syndrome (11q), Prader Willi syndrome/Angelman syndrome (15q), and DiGeorge syndrome (22q) is evaluated for the detection of microdeletions if requested. Performance characteristics refer to the analytical performance of this screening test. This screening test is performed pursuant to a license agreement with [employer]. QNatal Advanced is a laboratory developed test that has been developed and validated, pursuant to the Clinical Laboratory Improvements Amendments of 1988 (CLIA), and as such it has not been reviewed by FDA. OBSTETRIC PANEL W/FOURTH GEN ERATION HIV Reviewed date:05/31/2024 09:19:14 AM Interpretation: Performing Lab:[facility], [facility] [address], Job VegaYmxwJH[address] Walker Jacquelyn Mary Notes/Report: WHITE BLOOD CELL COUNT 11.2 3.8-10.8 Thousand/uL RED BLOOD CELL COUNT 4.39 3.80-5.10 Million/uL HEMOGLOBIN 12.7 11.7-15.5 g/dL HEMATOCRIT 37.0 35.0-45.0 % MCV 84.3 80.0-100.0 fL MCH 28.9 27.0-33.0 pg MCHC 34.3 32.0-36.0 g/dL RDW 12.9 11.0-15.0 % PLATELET COUNT 586 140-400 Thousand/uL MPV 9.2 7.5-12.5 fL ABSOLUTE NEUTROPHILS 8546 4771-8991 cells/uL ABSOLUTE LYMPHOCYTES 0901 719-3226 cells/uL ABSOLUTE MONOCYTES 739 200-950 cells/uL ABSOLUTE EOSINOPHILS 280 15-500 cells/uL ABSOLUTE BASOPHILS 45 0-200 cells/uL NEUTROPHILS 76.3 LYMPHOCYTES 14.2 MONOCYTES 6.6 EOSINOPHILS 2.5 BASOPHILS 0.4 ANTIBODY SCREEN, RBC W/REFL ID, TITER AND AG NO ANTIBODIES DETECTED Reference range No antibodies detected This assay is a screening test for the detection of red blood cell antibodies. The test is not to be used for pretransfusion screening or for the medical management of an alloimmunized . ABO GROUP A RH TYPE RH(D) NEGATIVE For additional information, please refer to http://[employer]Dailybreak Media/faq/GBB259 (This link is being provided for informational/ educational purposes only.) RPR (DX) W/REFL TITER AND CONFIRMATORY TESTING NON-REACTIVE NON-REACTIVE No laboratory evidence of syphilis. If recent exposure is suspected, submit a new sample in 2-4 weeks. HEPATITIS B SURFACE ANTIGEN NON-REACTIVE NON-REACTIVE For additional information, please refer to http://[employer]/faq/ORG116 (This link is being provided for informational/ educational purposes only.) RUBELLA AB (IGG), IMMUNE STATUS 4.62 Index Interpretation ----- <0.90 Not consistent with immunity 0.90-0.99 Equivocal > or = 1.00 Consistent with immunity The presence of rubella IgG antibody suggests immunization or past or current infection with rubella virus. HIV AG/AB, 4TH GEN NON-REACTIVE NON-REACTIVE HIV-1 antigen and HIV-1/HIV-2 antibodies were not detected. There is no laboratory evidence of HIV infection. PLEASE NOTE: This information has been disclosed to you from records whose confidentiality may be protected by state law. If your state requires such protection, then the state law prohibits you from making any further disclosure of the information without the specific written consent of the person to whom it pertains, or as otherwise permitted by law. A general authorization for the release of medical or other information is NOT sufficient for this purpose. For additional information please refer to http://[employer]Wooboard.com/faq/AWL482 (This link is being provided for informational/ educational purposes only.) The performance of this assay has not been clinically validated in patients less than 2 years old. Urinalysis, Routine (IH) Reviewed date:05/24/2024 01:48:55 PM Interpretation: Performing Lab: Notes/Report: Urine Color yellow Yellow - Mila Appearance clear Clear - Glucose neg Bilirubin neg Ketone neg Specific Vici 1.010 Blood 25 pH 6.0 Protein neg Urobilinogen 0.2 Nitrite neg Leukocytes neg CULTURE, URINE, ROUTINE Reviewed date:05/31/2024 09:18:16 AM Interpretation: Performing Lab:[facility]-[address] [employer], R&R Sy-TecNxqlLX[address] Walker Mary Notes/Report: CULTURE, URINE, ROUTINE SEE NOTE CULTURE, URINE, ROUTINE Micro Number: [id number] Test Status: Final Specimen Source: Urine, clean catch Specimen Quality: Adequate Result: Mixed genital sigrid isolated. These superficial bacteria are not indicative of a urinary tract infection. No further organism identification is warranted on this specimen. If clinically indicated, recollect clean-catch, mid-stream urine and transfer immediately to Urine Culture Transport Tube. VARICELLA ZOSTER VIRUS ANTIB CLARISSA (IGG) Reviewed date:05/31/2024 09:18:16 AM Interpretation: Performing Lab:[facility] [address] [employer] LtdteOhana R[employer] Sy-TecNaluTR[address] Walker Mary Notes/Report: VARICELLA ZOSTER VIRUS ANTIBODY (IGG) 571.60 Index Interpretation --------- <135.00 Negative - Antibody not detected 135.00 - 164.99 Equivocal > or = 165.00 Positive - Antibody detected A positive result indicates that the patient has antibody to VZV but does not differentiate between an active or past infection. The clinical diagnosis must be interpreted in conjunction with the clinical signs and symptoms of the patient. This assay reliably measures immunity due to previous infection but may not be sensitive enough to detect antibodies induced by vaccination. Thus, a negative result in a vaccinated individual does not necessarily indicate susceptibility to VZV infection. A more sensitive test for vaccination-induced immunity is Varicella Zoster Virus Antibody Immunity Screen, ACIF. HEPATITIS C AB W/REFL TO HCV RNA, QN, PCR Reviewed date:05/31/2024 09:18:16 AM Interpretation: Performing Lab:[facility]-[employer], AdaptiveMobileHhroDS[address] Walker Mary Notes/Report: HEPATITIS C ANTIBODY NON-REACTIVE NON-REACTIVE HCV antibody was non-reactive. There is no laboratory evidence of HCV infection. In most cases, no further action is required. However, if recent HCV exposure is suspected, a test for HCV RNA (test code 35089) is suggested. For additional information please refer to http://education.Wooboard.com/faq/FAQ22v 1 (This link is being provided for informational/ educational purposes only.) CULTURE, URINE, ROUTINE Reviewed date:05/10/2024 01:01:46 PM Interpretation: Performing Lab:[facility]-[employer], AdaptiveMobileWwxvYY[address] Walker Mary Notes/Report: CULTURE, URINE, ROUTINE SEE NOTE CULTURE, URINE, ROUTINE Micro Number: [id number] Test Status: Final Specimen Source: Urine, clean catch Specimen Quality: Adequate Result: No Growth CULTURE, URINE, ROUTINE Reviewed date:05/10/2024 05:09:01 PM Interpretation: Performing Lab:[facility]-[employer], AdaptiveMobileUholLK[address] Walker Mary Notes/Report: CULTURE, URINE, ROUTINE SEE NOTE May represent colonizers from external and internal genitalia. No further testing (including susceptibility) will be performed. CULTURE, URINE, ROUTINE Micro Number: [id number] Test Status: Final Specimen Source: Urine, clean catch Specimen Quality: Adequate Result: 50,000-100,000 CFU/mL of Coagulase negative staphylococcus, not S. saprophyticus Urinalysis, Routine () Reviewed date:05/03/2024 11:53:11 AM Interpretation: Performing Lab: Notes/Report: Urine Color yellow Yellow - Mila Appearance clear Clear - Glucose neg Bilirubin neg Ketone neg Specific Vici 1.025 Blood 200 pH 6.0 Protein neg Urobilinogen 0.2 Nitrite pos Leukocytes neg Test, Urine Reviewed date:05/03/2024 11:27:40 AM Interpretation:positive Performing Lab: Notes/Report: positive Test, Urine positive Negative - Reason For Referral No Information Medications Medication SIG (Take, Route, Frequency, Duration) Notes Start Date End Date Status Cephalexin 500 MG 1 tablet Orally Four times a day for 5 day(s) 06/05/2022 Not-Taking Wellbutrin Not-Takin g Estradiol 0.1 MG/GM 1 gram Vaginally Onc e daily for two weeks. Then decrease frequency to two times a week. for 90 days 07/23/2022 Not-Taking Ondansetron HCl 4 MG 1 tablet Orally Onc e a day for 30 days 08/24/2024 Active DULoxetine HCl 20 MG 1 capsule Orally On ce a day Active FLUoxetine HCl 10 MG 1 capsule Orally On ce a day Active Metoclopramide HCl 10 MG 1 tablet Orally every 8 hours as needed for nausea or headache for 30 days 05/24/2024 Active Probiotic prn Active Social History Tobacco Use: Social History Observation Description Date Details (start date - stop date) Current Smoker NA - NA Tobacco Use/Smoking Question Answer Notes Are you a current smoker Alcohol Screen (Audit-C) Question Answer Notes Did you have a drink containing alcohol in the p ast year? Yes Points 0 Interpretation Negative Problems Problem Type SNOMED Code ICD Code Onset Dates Problem Status W/U Status Risk Notes Problem Dysuria (26912417) Dysuria (R30.0) Active confirmed Problem Interstitial cystitis (275865074) Interstitial cystitis (N30.10) Active confirmed Problem 76862783 ASHWIN (stress urinary incontinence, female) (N39.3) Active confirmed Problem 16257711 Constipation, unspecified constipation type (K59.00) Active confirmed Problem Missed period (17809035) Missed menses (N92.6) Active confirmed Problem Dysuria (87323913) Pain with urination (R30.9) Active confirmed Problem 74601462 Migraine syndrome (G43.909) Active confirmed Vital Signs Blood pressure diastolic 62 mm Hg 08/20/2024 Height 66 in 08/20/2024 Blood pressure systolic 124 mm Hg 08/20/2024 Weight 199.1 lbs 08/20/2024 BMI 32.13 kg/m2 08/20/2024 Encounters Encounter Location Date Provider Diagnosis [address] [address] 08/20/2024 Lee Ann Cho Admission for routin e ultrasound Z36.89 [facility] [address] [place] [address] 05/03/2024 Meera Eul Urinary frequency R35.0 [facility] [address] [place] [address] 05/07/2024 Meera Eul Urinary frequency R35.0 [facility] [address] [place] [address] 07/29/2024 Lee Ann Cho Encounter for supervision of other normal in second trimester Z34.82 [facility] [address] [place] [address] 05/24/2024 Meera Eul Encounter for supervision of normal in multigravida in first trimester Z34.81 and Migraine syndrome G43.[address] [address] 05/03/2024 Meera Eul Missed menses N92.6 ; Urinary frequency R35.0 ; with inconclusive viability, not applicable or unspecified O36.80X0 and of unknown anatomic location V23.87 [facility] [address] [place] [address] 06/25/2024 Meera Eul Encounter for supervision of other normal , first trimester Z34.[address] [address] 07/29/2024 Lee Ann Cho Antepartum multigravida of advanced maternal age O09.529 [facility] [place] [address] [place] [address] 08/20/2024 Lee Ann Cho Encounter for supervision of other normal in second trimester Z34.82 [facility] [place] [address] [place] [address] 05/24/2024 Meera Dillon Encounter for supervision of other normal , unspecified trimester Z34.80 [facility] [place] [address] [place] [address] 05/24/2024 [facility] [place] [address] [place] [address] 05/06/2024 [facility] [place] [address] [place] [address] 08/23[facility] [address] [place] [address] 05/19[facility] [address] [place] [address] 07/05/2024 Meera [facility] [address] [place] [address] 08/10/2024 [facility] [address] [place] [address] 10/26/2024 Lee Ann Cho Assessments Encounter Date Diagnosis (ICD Code) Assessment Notes Treatment Notes Treatment Clinical Notes Section Notes 05/03/2024 Urinary frequency (ICD-10 - R35.0) 05/07/2024 Urinary frequency (ICD-10 - R35.0) 05/24/2024 Encounter for supervision of other normal , unspecified trimester (ICD-10 - Z34.80) 05/24/2024 Encounter for supervision of normal in multigravida in first trimester (ICD-10 - Z34.81) 05/24/2024 Migraine syndrome (ICD-10 - G43.909) 06/25/2024 Encounter for supervision of other normal , first trimester (ICD-10 - Z34.81) 07/29/2024 Antepartum multigravida of advanced maternal age (ICD-10 - O09.529) 07/29/2024 Encounter for supervision of other normal in second trimester (ICD-10 - Z34.82) 08/20/2024 Admission for routine ultrasound (ICD-10 - Z36.89) 08/20/2024 Encounter for supervision of other normal in second trimester (ICD-10 - Z34.82) 05/03/2024 Missed menses (ICD-10 - N92.6) 05/03/2024 Urinary frequency (ICD-10 - R35.0) Frquent UTI hx. Wants to wait for confirmatory culture prior to treatment 05/03/2024 with inconclusive viability, not applicable or unspecified (ICD-10 - O36.80X0) LMP 03/29/2024, EGA 5w0d, ALLAN 01/03/2025 RTC for OB1 Discussed dietary restrictions, PNV, general warning signs 15 minutes spent on chart review, in face to face time with patient, documentation of above and coordination of care. 05/03/2024 of unknown anatomic location (ICD9-CM - V23.87) 05/24/2024 Other Total face to face time is 45 minutes, with > 50% of time spent in counseling regarding diagnosis, risks and benefits of various treatment plans and expected outcomes. Discussed recommendations for lab tests in , options for genetic testing, hospitals of delivery, practice setup and electronic imaging system operator providers. Also discussed dietary recommendations . Plan Of Treatment Pending Test Test Name Order Date CULTURE, URINE, ROUTINE 06/20/2023 Insurance Providers Payer Name Payer Address Payer Phone Subscriber Number Group Number Insured Name Patient Relationship to Insured Coverage Start Date Coverage End Date [employer]BS - (Client Bill) [address] [place] [address] [id number] Margaret Roger Self - patient is the insured 2021 Medical (General) History Medical History History ICD Code bladder infections migraines Depression/ Anxiety Surgical History Surgery Date(Month/Year) Left wrist septoplasty revision septoplasty Hospitalization History Reason Date(Month/Year) Delivery/
[2025-01-18] MEDS: ONDANSETRON 2 MG/ML inj 4 MG IVP (02:28)
[2025-01-18] MEDS: 0.9 % SODIUM CHLORIDE 1000 ml 1,000 ML IV (02:32)
[2025-01-18 02:37] LABS: PCR FLU A Negative PCR FLU A (Negative); PCR FLU B Negative PCR FLU B (Negative); SARS PCR* Negative SARS-CoV-2 (Negative)
[2025-01-18] MEDS: KETOROLAC 30 MG/ML inj IVP (02:39)
[2025-01-18 02:48] VITALS: RESP 18
[2025-01-18 03:42] VITALS: BP 125/86
== END 2025-01-18 04:16 | disposition home or self-care (01) ==
PROVIDERS: Emergency Provider Family Medicine; PCP Family Medicine
DX: R51.9 Headache, unspecified (principal)
CPT/HCPCS: 81001; 87086; 87631; 96374; 96375; 99284; J1885; J2405; J7030

== ENCOUNTER 2025-01-20 10:55 | Outpatient (CLI) | payer BC, SELFPAY | END 2025-01-20 10:56 | disposition home or self-care (01) | PROVIDERS: PCP Family Medicine; Visit Provider Midwife | DX: R50.9 Fever, unspecified (principal); R51.9 Headache, unspecified; Z39.2 Encounter for routine postpartum follow-up | CPT/HCPCS: 82565; 84450; 84460; 84520; 84550 ==

== ENCOUNTER 2025-01-26 08:20 | Outpatient (CLI) | payer BC, SELFPAY | END 2025-01-26 08:21 | disposition home or self-care (01) | PROVIDERS: PCP Family Medicine; Visit Provider Advanced Practice Midwife | DX: R74.8 Abnormal levels of other serum enzymes (principal) | CPT/HCPCS: 84450; 84460 ==

== ENCOUNTER 2025-02-23 14:39 | Outpatient (CLI) | payer BC, SELFPAY ==
[2025-02-26 04:50] LABS: HPV Source Cervical; HPV, High Risk by TMA Not Detected
== END 2025-02-23 14:40 | disposition home or self-care (01) ==
PROVIDERS: PCP Family Medicine; Visit Provider Advanced Practice Midwife
DX: Z12.4 Encounter for screening for malignant neoplasm of cervix (principal); Z11.51 Encounter for screening for human papillomavirus (HPV)
CPT/HCPCS: 87624; 87625; 88141; 88142

== ENCOUNTER 2025-09-15 08:11 | Outpatient (CLI) | payer BC, SELFPAY | END 2025-09-15 08:12 | disposition home or self-care (01) | LOC: NFLDREF 09-18 17:43 | PROVIDERS: PCP Family Medicine; Referring Provider Family Medicine; Visit Provider Midwife | DX: F41.9 Anxiety disorder, unspecified (principal); F32.A Depression, unspecified; R74.8 Abnormal levels of other serum enzymes; Z86.2 Personal history of diseases of the blood and blood-forming organs and certain disorders involving the immune mechanism; Z82.79 Family history of other congenital malformations, deformations and chromosomal abnormalities; R79.82 Elevated C-reactive protein (CRP) | CPT/HCPCS: 80061; 83540; 83550; 84439; 84443; 84450; 84460; 86140 ==

== ENCOUNTER 2025-09-20 08:15 | Outpatient (CLI) | payer BC, SELFPAY | END 2025-09-20 08:16 | disposition home or self-care (01) | LOC: NFLDREF 09-26 03:43 | PROVIDERS: PCP Family Medicine; Referring Provider Family Medicine; Visit Provider Midwife | DX: R19.7 Diarrhea, unspecified (principal) | CPT/HCPCS: 87045; 87046; 87427 ==